=== PATIENT | male | born 1940 | race Caucasian/White ===

== ENCOUNTER 2017-02-01 10:25 | Outpatient (CLI) | payer MEDICARE, OTHER ==
--- NOTE | 2017-02-01 12:18 | XRAY Report ---
TWO-VIEW STANDING LEFT KNEE: 02/01/2017 CLINICAL INDICATION: Pain. FINDINGS: Frontal and lateral views of the left knee demonstrate no evidence of fracture or dislocat ion. The joint spaces are preserved. No effusion is present. IMPRESSION: NORMAL LEFT KNEE. JOB #: [id number] EXT JOB #:[id number]
== END 2017-02-01 10:26 | disposition home or self-care (01) ==
LOC: DI 10:25
PROVIDERS: ATTEND Internal Medicine
DX: M25.562 Pain in left knee (principal)

== ENCOUNTER 2017-12-11 14:49 | Outpatient (CLI) | payer MEDICARE, OTHER ==
--- NOTE | 2017-12-12 10:07 | Ultrasound Report ---
Procedure Date: 12/11/2017 Accession Number: [id number] / [id number] Procedure: US - Duplex Lwr Ext Arterial Bilat CPT Code: FULL RESULT: EXAM: BILATERAL LOWER EXTREMITY ARTERIAL DOPPLER ULTRASOUND EXAM DATE: 12/11/2017 04:35 PM. CLINICAL HISTORY: Claudication. Leg pain. COMPARISON: None. TECHNIQUE: Real-time sonographic vascular imaging was performed by the footwear sales associate, utilizing color-flow, Doppler flow, and spectral analysis. Multiple member service representative static images were saved for review. FINDINGS: Right Leg: [employer]: PSV 87 cm/sec. Biphasic waveform. PSFA: PSV 101 cm/sec.Biphasic waveform. MSFA: PSV 60 cm/sec.Biphasic waveform. DSFA: PSV 55 cm/sec.Biphasic waveform. PFA: PSV 69 cm/sec. Monophasic waveform. POP: PSV 37 cm/sec.Biphasic waveform. SHERYL: PSV 34 cm/sec.Biphasic waveform. QUALITY TESTER: PSV 24 cm/sec.Biphasic waveform. PER: PSV 18 cm/sec.Biphasic waveform. DPA: PSV 33 cm/sec.Biphasic waveform. Left Leg: [employer]: PSV 76 cm/sec. Triphasic waveform. PSFA: PSV 97 cm/sec.Biphasic waveform. MSFA: PSV 102 cm/sec.Biphasic waveform. DSFA: PSV 80 cm/sec.Biphasic waveform. PFA: PSV 78 cm/sec. Triphasic waveform. POP: PSV 80 cm/sec.Biphasic waveform. SHERYL: PSV 41 cm/sec.Biphasic waveform. QUALITY TESTER: PSV 75 cm/sec. Triphasic waveform. PER: PSV 87 cm/sec. Triphasic waveform. DPA: PSV 36 cm/sec. Monophasic waveform. IMPRESSION: No flow-limiting stenosis in either lower extremity arterial system. RADIA
== END 2017-12-11 14:50 | disposition home or self-care (01) ==
LOC: DI 14:49
PROVIDERS: ATTEND Internal Medicine
DX: R26.89 Other abnormalities of gait and mobility (principal)
CPT/HCPCS: 93925

== ENCOUNTER 2018-08-05 15:48 | Outpatient (CLI) | payer MEDICARE, OTHER ==
--- NOTE | 2018-08-05 16:20 | XRAY Report ---
Reason: COUGH Procedure Date: 08/05/2018 Accession Number: [id number] / [id number] Procedure: XR - Chest 2 View X-Ray CPT Code: 55070 FULL RESULT: EXAM: CHEST RADIOGRAPHY EXAM DATE: 08/05/2018 04:07 PM. CLINICAL HISTORY: COUGH. COMPARISON: 05/17/2012 5:46 AM. TECHNIQUE: 2 views. FINDINGS: Lungs/Pleura: Hypoventilatory chest. Mild bilateral basilar consolidation most consistent with pneumonia. No pleural effusions. No pneumothorax. Mediastinum: Heart and mediastinal contours are unremarkable. Other: None. IMPRESSION: 1. Hypoventilatory chest. 2. Mild bilateral basilar parenchymal consolidation most consistent with pneumonia. No pleural effusions. RADIA
== END 2018-08-05 15:49 | disposition home or self-care (01) ==
LOC: DI 15:48
PROVIDERS: ATTEND Internal Medicine
DX: J18.1 Lobar pneumonia, unspecified organism (principal)
CPT/HCPCS: 71046

== ENCOUNTER 2020-11-11 16:10 | Outpatient (CLI) | payer MEDICARE, OTHER ==
--- NOTE | 2020-11-11 16:45 | CT Report ---
PROCEDURE: HEAD WO INDICATIONS: SEVERE HEADACHE TECHNIQUE: Noncontrast 4.5 mm thick angled axial sections acquired from the foramen magnum to the vertex. For r adiation dose reduction, the following was used: automated exposure control, adjustment of mA and/or kV according to patient size. COMPARISON: None. FINDINGS: Image quality: Excellent. CSF spaces: Basal cisterns are patent. No extra-axial fluid collections. Ventricles are normal in size and shape. Brain: No midline shift. No intracranial masses or hemorrhage. Moran-white matter interface is norm al. Skull and face: Calvarium and visualized facial bones are intact, without suspicious lesions. Sinuses: Visualized sinuses and mastoids are clear. IMPRESSION: No acute intracranial abnormality. Reviewed by: Ana Zuñiga MD on 11/11/2020 4:44 PM PDT Approved by: Ana Zuñiga MD on 11/11/2020 4:44 PM PDT Station ID: [id number]
== END 2020-11-11 16:11 | disposition home or self-care (01) ==
LOC: LAB 16:10 → DI 16:11
PROVIDERS: ATTEND Internal Medicine
DX: R51.9 Headache, unspecified (principal)
CPT/HCPCS: 36415; 85651; 86140

== ENCOUNTER 2021-06-12 08:00 | Outpatient (CLI) | payer MEDICARE, OTHER ==
[2021-06-12 16:17] LABS: ALBUMIN 3.9 g/dL (3.2-5.5); ALBUMIN/GLOBULIN RATIO 1.3 (1.0-2.2); BILIRUBIN,TOTAL 0.6 mg/dL (0.2-1.0); CALCIUM 9.2 mg/dL (8.5-10.3); POTASSIUM 4.2 mmol/L (3.5-5.0)
[2021-06-13 09:00] LABS: ESTIMATED AVERAGE GLUCOSE 157 mg/dL (70-100); HEMOGLOBIN A1c% 7.1 % (4.27-6.07)
== END 2021-06-12 23:59 | disposition home or self-care (01) ==
LOC: LAB 08:00
PROVIDERS: ATTEND Internal Medicine
DX: Z79.899 Other long term (current) drug therapy (principal)
CPT/HCPCS: 36415; 80053; 82607; 83036

== ENCOUNTER 2021-07-05 11:52 | Outpatient (CLI) | payer MEDICARE, OTHER ==
--- NOTE | 2021-07-05 13:29 | CT Report ---
PROCEDURE: Sinuses INDICATIONS: CHRONIC PANSINUSITIS TECHNIQUE: Noncontrast 3.0 mm axial images acquired from the frontal sinuses to the mid-sella, with coronal and sagittal reformats. For radiation dose reduction, the following was used: automated exposure control , adjustment of mA and/or kV according to patient size. COMPARISON: Correlation is made with the prior head CT, 11/11/2020 FINDINGS: Image quality: Excellent. Maxillary Sinuses: No bony remodeling or destruction. Mild mucosal thickening is seen within the inf erior maxillary sinuses. Ethmoid Air Cells: No bony remodeling or destruction. Sinuses are clear. Sphenoid Sinuses: No bony remodeling or destruction. Sinuses are clear. Frontal Sinuses: No bony remodeling or destruction. Sinuses are clear. Ostiomeatal Complexes: Ostiomeatal complexes are patent, yet they are constitutionally narrowed. The re are further narrowed by soft tissue thickening. There are bilateral Andres cells. Miscellaneous: Visualized intra-orbital contents are normal. No gene bullosa. There is minimal ri ghtward nasal septal deviation. IMPRESSION: Focal mild maxillary sinus disease. Narrowed ostiomeatal complexes. Reviewed by: Gilbert Villanueva MD on 07/05/2021 12:28 PM OLGA Approved by: Gilbert Villanueva MD on 07/05/2021 12:28 PM AKNOHEMI Station ID: [id number]
== END 2021-07-05 11:53 | disposition home or self-care (01) ==
LOC: DI 11:52
PROVIDERS: ATTEND Otolaryngology
DX: J34.89 Other specified disorders of nose and nasal sinuses (principal); J31.0 Chronic rhinitis; R05.9 Cough, unspecified; J32.4 Chronic pansinusitis

== ENCOUNTER 2022-04-23 08:45 | Emergency (ER) | payer MEDICARE, OTHER ==
[2022-04-23] MEDS ORDERED: AMPICILLIN/SULBACTAM 3 GM in SODIUM CHLORIDE 0.9% MINIBAG 100 ML IV STA (08:57)
[2022-04-23] MEDS ORDERED: TETANUS/DIPHTHERIA/PERTUSSIS 0.5 ML SYRINGE IM ONE (08:58)
--- NOTE | 2022-04-23 09:02 | ED Physician Documentation ---
PD HPI UPPER EXT INJURY - Stated complaint Stated Complaint: DOG BITE - Chief complaint Chief Complaint: Laceration - History obtained from History obtained from: Patient - Additonal information Additional information: 81-year-old gentleman with type 2 diabetes and hypertension was moving his dog in the bed 4 nights ago and it bit him on the right hand. Since yesterday he has had progressive redness up the forearm without fevers or chills. He did not know his tetanus status, but review of the [facility] vaccine registry shows that he had it in 2014. Review of Systems Constitutional: denies: Fever, Chills PD PAST MEDICAL HISTORY - Past Medical History Cardiovascular: Hypertension, High cholesterol Respiratory: Sleep apnea Endocrine/Autoimmune: Type 2 diabetes GI: None : None HEENT: Chronic hearing loss Psych: Anxiety Musculoskeletal: None Derm: None - Past Surgical History General: Colonoscopy - Present Medications Home Medications: Ambulatory Orders Medication Instructions Recorded Confirmed Citalopram [CeleXA] 40 mg PO DAILY 06/09/13 03/09/15 Pravastatin Sodium [Pravachol] 80 mg PO DAILY 06/09/13 03/09/15 metFORMIN [Glucophage] 1,000 mg PO BID 06/09/13 03/09/15 LORazepam [Lorazepam] 0.5 mg PO Q24HR@2100 PRN 03/08/15 03/09/15 lisinopriL [Lisinopril] 5 mg PO DAILY 03/08/15 03/09/15 Amox/Clav 875/125 [Augmentin] 1 each PO Q12H #20 tablet 04/23/22 - Allergies Allergies/Adverse Reactions: Allergies Allergy/AdvReac Type Severity Reaction Status Date / Time ciprofloxacin [From Cipro] AdvReac Unknown Verified 04/23/22 08:58 PD ED PE NORMAL - Vitals Vital signs reviewed: Yes - General General: Alert and oriented X 3, No acute distress - Extremities Extremities: Other (Multiple puncture wounds near the thenar area and dorsal first webspace of the right hand, no bony tenderness or limited range of motion. On the palmar side I was able to express just a bit of purulent material that was sent for culture. He has cellulitis up the anterolateral forearm ) - Neuro Neuro: Alert and oriented X 3, Normal speech - Psych Psych: Normal mood, Normal affect Results - Vitals Vitals: Vital Signs - 24 hr 04/23/22 08:54 Temperature 36.8 C Heart Rate 57 L Respiratory 14 Rate Blood Pressure 156/62 H O2 Saturation 100 Oxygen O2 Source Room air PD Medical Decision Making - ED course ED course: 81-year-old gentleman with dog bite wound for 4 days duration to the right hand now with some cellulitis of the forearm. Tetanus is up-to-date. He was administered 3 g of IV Unasyn in the emergency department and counseled on wound care and expected healing and return precautions. Departure - Departure Disposition: 01 Home, Self Care Clinical Impression: Cellulitis of right arm Dog bite of right hand Qualifiers: Encounter type: initial encounter Qualified Code(s): S61.451A - Open bite of right hand, initial encounter; W54.0XXA - Bitten by dog, initial encounter Condition: Good Record reviewed to determine appropriate education?: Yes Instructions: ED Bite Dog, ED Infec Skin Cellulitis Prescriptions: Amox/Clav 875/125 [Augmentin] 1 each PO Q12H #20 tablet Comments: We are performing a wound culture, the results should be done in 48-72 hours. If antibiotic change is necessary we will call you. Return if worse in the meantime, especially if you develop increased pain, fevers, cannot keep down the medication. Otherwise follow-up with your physician in approximately 2 days for recheck
[2022-04-23 09:45] VITALS: BP 137/68
== END 2022-04-23 09:51 | disposition home or self-care (01) ==
LOC: ED 08:45
DX: S61.451A Open bite of right hand, initial encounter (principal); W54.0XXA Bitten by dog, initial encounter; L03.113 Cellulitis of right upper limb; I10 Essential (primary) hypertension; E11.9 Type 2 diabetes mellitus without complications; Z79.84 Long term (current) use of oral hypoglycemic drugs
CPT/HCPCS: 87070; 87205; 96365; 99283

== ENCOUNTER 2022-06-12 10:06 | Outpatient (CLI) | payer MEDICARE, OTHER ==
[2022-06-12 15:32] LABS: BASOPHILS # (AUTO) 0.1 10^3/uL (0.0-0.1); BASOPHILS % (AUTO) 0.7 %; EOSINOPHILS # (AUTO) 0.2 10^3/uL (0.0-0.7); EOSINOPHILS % (AUTO) 1.5 %; HCT - HEMATOCRIT 41.2 % (42.0-52.0); HGB - HEMOGLOBIN 13.2 g/dL (14.0-18.0); LYMPHOCYTES # (AUTO) 1.7 10^3/uL (1.5-3.5); LYMPHOCYTES % (AUTO) 16.4 %; MEAN CORPUSCULAR HEMOGLOBIN 28.4 pg (27.0-31.0); MEAN CORPUSCULAR VOLUME 88.8 fL (80.0-94.0); MONOCYTES # (AUTO) 1.1 10^3/uL (0.0-1.0); MONOCYTES % (AUTO) 10.6 %; NEUTROPHILS # (AUTO) 7.3 10^3/uL (1.5-6.6); NEUTROPHILS % (AUTO) 70.4 %; PLT - PLATELET COUNT 317 10^3/uL (130-450); RED BLOOD COUNT 4.64 10^6/uL (4.70-6.10); RED CELL DISTRIBUTION WIDTH 14.4 % (12.0-15.0); WHITE BLOOD COUNT 10.3 x10^3/uL (4.8-10.8)
[2022-06-12 15:51] LABS: MICROALBUM/CREATININE RATIO,UR 18.2 ug/mg (<30.0); MICROALBUMIN,URINE 2.5 mg/dL (0-300.0)
[2022-06-12 15:57] LABS: ALBUMIN/GLOBULIN RATIO 1.1 (1.0-2.2); ALKALINE PHOSPHATASE 48 IU/L (42-121); ALT ALANINE AMINOTRANSFERASE 14 IU/L (10-60); AST ASPARTATE AMINOTRANSFERASE 15 IU/L (10-42); BILIRUBIN,TOTAL 0.5 mg/dL (0.2-1.0); BUN - BLOOD UREA NITROGEN 24 mg/dL (6-20); CALCIUM 10.2 mg/dL (8.5-10.3); CARBON DIOXIDE - CO2 24 mmol/L (21-32); CHLORIDE 101 mmol/L (101-111); CHOL/HDL RATIO 2.7 (<5.0); CHOLESTEROL 189 mg/dL; CK- CREATINE KINASE 28 IU/L (22-269); CREATININE 1.1 mg/dL (0.6-1.2); GFR - MDRD 65 (>89); GLUCOSE 130 mg/dL (70-100); HDL CHOLESTEROL 70 mg/dL; LDL CHOLESTEROL,CALCULATED 99 mg/dL; LDL/HDL RATIO 1.4 (<3.6); POTASSIUM 4.8 mmol/L (3.5-5.0); SODIUM 137 mmol/L (135-145); THYROID STIMULATING HORMONE 2.41 uIU/mL (0.34-5.60); TOTAL PROTEIN 7.6 g/dL (6.7-8.2); TRIGLYCERIDES 101 mg/dL; VLDL CHOLESTEROL 20 mg/dL
[2022-06-12 21:05] LABS: ESTIMATED AVERAGE GLUCOSE 171 mg/dL (70-100); HEMOGLOBIN A1c% 7.6 % (4.27-6.07)
== END 2022-06-12 23:59 | disposition home or self-care (01) ==
LOC: LAB.R 10:06
PROVIDERS: ATTEND Internal Medicine
DX: Z00.00 Encounter for general adult medical examination without abnormal findings (principal); C44.91 Basal cell carcinoma of skin, unspecified; C61 Malignant neoplasm of prostate; F32.A Depression, unspecified; E11.9 Type 2 diabetes mellitus without complications; K57.90 Diverticulosis of intestine, part unspecified, without perforation or abscess without bleeding; H91.90 Unspecified hearing loss, unspecified ear; E78.5 Hyperlipidemia, unspecified; M19.90 Unspecified osteoarthritis, unspecified site; J30.2 Other seasonal allergic rhinitis; Z79.899 Other long term (current) drug therapy; Z86.010 Personal history of colon polyps
CPT/HCPCS: 80053; 80061; 82043; 82550; 82570; 82607; 83036; 83721; 84443; 85025

== ENCOUNTER 2025-02-05 13:59 | Inpatient (IN) ==
[2025-02-05] MEDS: HYDROmorphone 0.5 MG/0.5 ML SYRINGE IVP STA (14:58)
[2025-02-05] MEDS: KETOROLAC 30 MG/ML VIAL IVP STA (14:58)
--- NOTE | 2025-02-05 15:03 | ED Physician Documentation ---
History of Present Illness Stated complaint Stated Complaint: R HIP PX Chief complaint Chief Complaint: Trauma Ext History obtained from History obtained from: Patient and EMS Additonal information Additional information: Patient comes to the emergency department chief complaint of ground-level fall. He tripped and fell onto his right hip in the parking lot at the store and had immediate right hip pain. No other injuries whatsoever. He did not hit his head. Not on anticoagulation. Meds/Allgy Home Medications Ambulatory Orders Medication Instructions Recorded Confirmed citalopram 10 mg tablet 40 mg PO DAILY 06/09/1302/20 metformin 850 mg tablet 1,000 mg PO BID 06/09/13 pravastatin 80 mg tablet 80 mg PO DAILY 06/09/1302/20 (Pravachol) lisinopril 5 mg tablet 5 mg PO DAILY 03/08/1503/09 lorazepam 0.5 mg tablet 0.5 mg PO Q24HR@2100 PRN Anx iety 03/08/15 03/09/15 Augmentin 875 mg-potassium 1 ea PO Q12H #20 tabs 04/23 clavulanate 125 mg tablet Allergies Allergies Allergy/AdvReac Type Severity Reaction Status Date / Time ciprofloxacin (From Cipro) AdvReac Unknown Verified 04/23/22 08:58 PFSH Active Problems All Active Problems (Updated 02/05/25 @ 19:10 by Nivia Vicente MD) Femoral neck fracture (Acute) Social History Social History If you are a former smoker, when did you quit? (Date/Year): 1999 How many cigarettes a day do you smoke? (20 cigarettes=1 Pk): 20 Do you dip or chew tobacco?: No Do you feel safe in your home environment?: Yes History of physical, verbal, emotional, or financial abuse?: No Exam Exam Vital Signs: Vital Signs x48h Temp Pulse Resp BP Pulse Ox 02/05/25 17:00 89 16 142/56 H 97 02/05/25 15:03 87 16 166/85 H 96 02/05/25 14:11 85 16 172/89 H 98 02/05/25 14:06 36.7 C 89 18 172/89 H 96 Constitutional normal general appearance and no apparent distress HENMT normocephalic, head/scalp atraumatic, external nose normal and oral mucous membranes normal Eyes EOMs intact bilaterally Neck/C-Spine visual inspection normal and supple Respiratory breath sounds equal bilaterally, normal respiratory effort and clear to auscultation bilaterally Cardiovascular normal heart rate noted, regular rhythm noted and no edema Gastrointestinal abdomen normal to inspection, abdomen soft to palpation, nontender to palpation and nondistended Genitourinary no CVA tenderness Extremities normal to inspection Neurology Alert, grossly intact Psychiatry mental status grossly normal Skin skin color normal Results Vitals Vitals: Vital Signs - 24 hr 02/05/25 14:06 02/05/25 14:11 02/05/25 14:58 Temperature 36.7 C Temperature Source Temporal Artery Scan Pulse Rate 89 85 Respiratory Rate 18 16 Blood Pressure 172/89 H 172/89 H O2 Saturation 96 98 O2 Source Room air Room air Pain Intensity 10 3 6 02/05/25 14:58 02/05/25 15:03 02/05/25 17:00 Temperature Temperature Source Pulse Rate 87 89 Respiratory Rate 16 16 Blood Pressure 166/85 H 142/56 H O2 Saturation 96 97 O2 Source Room air Room air Pain Intensity 6 5 2 02/05/25 18:48 Temperature Temperature Source Pulse Rate Respiratory Rate Blood Pressure O2 Saturation O2 Source Pain Intensity 4 Oxygen O2 Source Room air Labs Labs: Laboratory Tests 02/05/25 17:54 WBC 12.1 H RBC 3.91 L Hgb 10.9 L Hct 34.9 L MCV 89.3 MCH 27.9 MCHC 31.2 L RDW 15.7 H Plt Count 277 MPV 8.6 Neut # (Auto) 9.5 H Lymph # (Auto) 1.3 L [place] # (Auto) 1.2 H Eos # (Auto) 0.2 Baso # (Auto) 0.0 Absolute Nucleated RBC 0.00 Nucleated RBC % 0.0 PT 11.8 INR 1.1 Sodium 138 Potassium 5.1 H Chloride 107 Carbon Dioxide 24 Anion Gap 7.0 BUN 30 H Creatinine 1.5 H Estimated GFR (MDRD) 45 L Glucose 183 H Calcium 9.4 Total Bilirubin 0.3 AST 11 ALT 11 Alkaline Phosphatase 50 Total Protein 5.8 L Albumin 3.9 Globulin 1.9 L Albumin/Globulin Ratio 2.1 Lipase 35 PD Medical Decision Making ED course Complexity details: reviewed old records, re-evaluated patient, considered differential, d/w patient, d/w family and d/w science consultant ED course: Patient was sent for a CT scan of the right hip and pelvis and found to have a femoral neck fracture. I spoke with orthopedics on-call Dr. Schwartz and he states he will take patient to the OR in the morning. He has requested medicine admission. I spoke with hospitalist team Dr. Ruiz and GREGORY Abad and they have agreed to admit the patient when a bed becomes available which hopefully will be later this evening. The patient has been treated with as needed Dilaudid in the emergency department. He has had good pain control with this. I have discussed the plan with the patient and his , and they are in agreement. Discharge Plan Discharge Patient Disposition: [facility] DC/Xfer Condition: Stable Clinical Impression: Femoral neck fracture Qualifiers: Encounter type: initial encounter Fracture type: closed Laterality: right Qualified Code(s): S72.001A - Fracture of unspecified part of neck of right femur, initial encounter for closed fracture Prescriptions: No Action citalopram 10 MG tablet 40 mg PO DAILY metformin 850 MG tablet 1,000 mg PO BID pravastatin [Pravachol] 80 MG tablet 80 mg PO DAILY lorazepam 0.5 MG tablet 0.5 mg PO Q24HR@2100 PRN (Reason: Anxiety) lisinopril 5 MG tablet 5 mg PO DAILY amoxicillin-pot clavulanate 1 TAB tablet 1 ea PO Q12H Qty: 20 0RF Print Language: Guamanian
--- NOTE | 2025-02-05 17:35 | CT Report ---
PROCEDURE: CT Lower Extremity RT WO INDICATIONS: fall/pain TECHNIQUE: CT scan of the hip was performed without contrast. Coronal and sagittal reformats were constructed. For radiation dose reduction, the following was used: automated exposure control, adjustment of mA and/or kV according to patient size. COMPARISON: None. FINDINGS: Image quality: Excellent. Bones: There is an angulated and impacted femoral neck fracture. No dislocation at the hip joint. Remaining osseous structures are intact. No suspicious osseous lesions. Soft tissues: Colonic diverticula without inflammatory change. Mild soft tissue contusion adjacent to the femoral fracture. Impression: Angulated and impacted femoral neck fracture. Diverticulosis. Reviewed by: Francie Nielson MD on 02/05/2025 5:31 PM PDT Approved by: Francie Nielson MD on 02/05/2025 5:31 PM PDT Station ID: [id number]
[2025-02-05 18:06] LABS: HCT - HEMATOCRIT 34.9 % (42.0-52.0); HGB - HEMOGLOBIN 10.9 g/dL (14.0-18.0); MEAN PLATELET VOLUME 8.6 fL (7.4-11.4); NRBC ABSOLUTE COUNT (AUTO) 0.00 x10^3/uL; NUCLEATED RED BLOOD CELLS AUTO 0.0 /100WBC; PLT - PLATELET COUNT 277 10^3/uL (130-450); RED CELL DISTRIBUTION WIDTH 15.7 % (12.0-15.0)
[2025-02-05 18:11] LABS: INR 1.1 (0.8-1.2); PT - PROTHROMBIN TIME 11.8 secs (9.9-12.6)
[2025-02-05 18:28] LABS: ALT ALANINE AMINOTRANSFERASE 11.0 IU/L (10-60); AST ASPARTATE AMINOTRANSFERASE 11.0 IU/L (10-42); BUN - BLOOD UREA NITROGEN 30.0 mg/dL (6-20); CARBON DIOXIDE - CO2 24.0 mmol/L (21-32); CREATININE 1.5 mg/dL (0.6-1.3); GFR - MDRD 45.0 (>89)
[2025-02-05] MEDS: HYDROmorphone 1 MG/ML CARPUJECT IVP PRN (18:48)
[2025-02-05] MEDS ORDERED: ONDANSETRON 4 MG/2 ML VIAL IVP PRN (20:51)
--- NOTE | 2025-02-05 21:07 | HISTORY & PHYSICAL EXAMINATION ---
Chief Complaint Chief Complaint Chief Complaint: right hip pain History of Present Illness Admitted From Admitted From:: home History Obtained From Records Reviewed: echo Apr 2024, History obtained from: patient History of Present Illness HPI Comment/Other: 84 yo male LANDEN after a fall. He bumped into his while walking though a parking lot after having lunch at a restaurant in [place]. has been feeling well recently. no problems. had immediate pain in the right hip with inability to bear weight. unable to get up. Denies syncope/presyncope. Did not hit his head. he is not on blood thinners. Very pleasant in conversation. When I ask about his health history and medications, he wants me to "check the computer". Active and healthy 84 yo. lives with his , no children. DNR status. would make his medical decisions if he were not able. Meds/Allgy Home Medications Ambulatory Orders Medication Instructions Recorded Confirmed lisinopril 5 mg tablet 5 mg PO DAILY 03/08/1502/05 lorazepam 0.5 mg tablet 0.5 mg PO Q24HR@2100 PRN Anx iety 03/08/15 02/05/25 bupropion HCl 150 mg 24 hr tablet, 150 mg PO DAILY 02/05/25 extended release losartan 25 mg tablet 25 mg PO DAILY 02/05/2501/20 pioglitazone 15 mg tablet 15 mg PO DAILY 02/05/2501/20 pravastatin 40 mg tablet 40 mg PO QPM 02/05/25 triamcinolone acetonide 0.1 % 1 applic topical BID PRN rash 02/05/25 02/05/25 topical ointment Allergies Allergies Allergy/AdvReac Type Severity Reaction Status Date / Time ciprofloxacin (From Cipro) AdvReac Unknown Verified 04/23/22 08:58 PFSH Active Problems All Active Problems (Updated 02/05/25 @ 21:33 by GREGORY Burton) Leukocytosis (Acute) Renal insufficiency (Acute) Hyperkalemia (Acute) Depression (Chronic) Hyperlipidemia (Chronic) Hypertension (Chronic) Diabetes (Chronic) Femoral neck fracture (Acute) Social History Social History If you are a former smoker, when did you quit? (Date/Year): 1999 How many cigarettes a day do you smoke? (20 cigarettes=1 Pk): 20 Do you dip or chew tobacco?: No Do you feel safe in your home environment?: Yes History of physical, verbal, emotional, or financial abuse?: No POLST Patient has POLST: No POLST on file?: No Review of Systems Status of ROS: 10 or more systems reviewed and unremarkable except as noted in history and below Prior Level of Functionality: Drives, walks without assistive devices, denies falls or balance problems. Gardens and walks. Exam Exam Vital Signs: Vital Signs x48h Temp Pulse Resp BP Pulse Ox 02/05/25 20:37 100 18 166/102 H 96 02/05/25 19:41 84 16 125/87 97 02/05/25 17:00 89 16 142/56 H 97 02/05/25 15:03 87 16 166/85 H 96 02/05/25 14:11 85 16 172/89 H 98 02/05/25 14:06 36.7 C 89 18 172/89 H 96 Constitutional normal general appearance and no apparent distress HENMT normocephalic and head/scalp atraumatic Eyes conjunctivae normal Neck/C-Spine visual inspection normal and trachea midline Lymph no lymphadenopathy noted Chest inspection of chest normal Respiratory breath sounds equal bilaterally, normal respiratory effort and clear to auscultation bilaterally Cardiovascular normal heart rate noted and regular rhythm noted Gastrointestinal abdomen normal to inspection and abdomen soft to palpation Back/Pelvis spine normal to inspection Extremities right lower extremity shortened and externally rotated. unable to perform ROM RLE. no pedal edema. Neurology no movement abnormality noted, speech normal and GCS 15 Psychiatry mental status grossly normal, oriented x3, thought process normal and cooperative Skin skin color normal abrasion, small at right anterior patella area, no joint effusion or deformity Conclusion/Plan Problem List (1) Femoral neck fracture: Plan: ground-level fall resulting in right femoral neck fracture with obvious deformity. Emergency department MD has discussed with orthopedics who is planning on operative repair in the morning. This patient is not on any blood thinners he does not take aspirin. Discussed this patient with Dr. Vicente in the emergency department decision was made to admit him to inpatient status for operative treatment of his hip fracture. He will get physical therapy postoperatively and will either discharged home in the care of his or need rehab bed placement. N.p.o. after midnight. Will optimize for the OR. EKG ordered. Additionally will attempt to correct his hyperkalemia overnight. Qualifiers: Encounter type: initial encounter Fracture type: closed [facility] Qualified Code(s): S72.001A - Fracture of unspecified part of neck of right femur, initial encounter for closed fracture (2) Hyperkalemia: Plan: Laboratory Tests 02/05/25 17:54 Potassium 5.1 H Limited access to his health information. But I do not see any past history of hyperkalemia I do not see any potassium supplements in his medication list nor potassium sparing diuretics. I have ordered 1 dose of Lokelma to be given this evening and we will recheck his potassium level again in the morning. (3) Leukocytosis: Plan: 12.5 on admit, could be secondary to stress. no cough or fever recently. no dysuria. I will check UA, and repeat CBC in AM (4) Renal insufficiency: Plan: Laboratory Tests 06/12/22 02/05/25 10:06 17:54 Creatinine 1.1 1.5 H Most recent labs 2-1/2 years ago showing a normal creatinine. Unclear if this is acute or chronic Creatinine mildly elevated this evening with a GFR of 45. I will hydrate the patient overnight and recheck his creatinine again in the morning. I wonder if this is chronic renal insufficiency related to his diabetes. (5) Diabetes: Plan: I can see surgical consultations back as far as 2014 mentioning his history of diabetes. Home medication list includes pioglitazone. His glucose is slightly elevated on labs done this evening at 183. I have placed the patient on low- dose sliding scale insulin overnight and we will check an A1c with his a.m. labs. Goal would be to keep his blood sugars less than 180 while hospitalized (6) Hypertension: Plan: for optimal healing of his hip fracture. Home medications include losartan 25 mg daily lisinopril 5 mg daily. I find it odd that his medications and been reconciled in this patient lists both an STACEY inhibitor but and an angiotensin receptor marti. Will ask for more thorough medication reconciliation in the AM. Patient is not aware of his medication list.If he is indeed taking these 2 medications together it could be the cause of his hyperkalemia (7) Hyperlipidemia: Plan: Will continue his pravastatin 40 mg daily postoperatively. (8) Depression: Plan: Home medication list includes lorazepam 0.5 mg nightly. Checked PDMP and he is indeed prescribed this medication. Also lists bupropion 150 mg daily. We will continue this medication. Plan I have spent 80 minutes in the care of this patient today. This includes time [id number], review and ordering of diagnostic imaging and laboratory studies and consultation with other providers. Monitoring the patient's signs symptoms, evaluation of medication effectiveness and patient's response to treatment. Lab Results Lab results reviewed: Yes 02/05/25 17:54 02/05/25 17:54 Diagnostic Imaging Results Diagnostic Imaging Results: positive Final report reviewed and Read independently Diagnostic Imaging Results Comments: CT right lower extremity shows a right femoral neck fracture. Core Measures Anticipated LOS I expect patient to be DC'd or transferred within 96 hours.: Yes DVT/VTE - Prophylaxis VTE/DVT Device ordered at admit?: Yes VTE/DVT Prophylaxis med ordered at admit?: No Not Ordered - Medical Reason: Not indicated (Held for OR)
--- OUTSIDE RECORDS SUMMARY | 2025-02-05 21:09 | EXTERNAL MEDICAL SUMMARY RPT | Continuity of Care Document ---
Author Organization [place] Address [address] [address] Phone Problems date description facility 2025-02-05 20:56 Fracture of unspecif ied part of neck of unspecified femur, initial encounter for closed fracture [facility] Results/Labs test date facility value unit notes Result panel 1 NUCLEATED RED BLOOD CELLS AUTO 2025-02-05 17:54 [facility] 0.0 /100wbc (missing) BASOPHILS # (AUTO) 2025-02-05 17:54 [facility] 0.0 10 3/ul (missing) NRBC ABSOLUTE COUNT (AUTO) 2025-02-05 17:54 [facility] 0.00 x10 3/ul (missing) EOSINOPHILS # (AUTO) 2025-02-05 17:54 [facility] 0.2 10 3/ul (missing) BILIRUBIN,TOTAL 2025-02-05 17:54 [facility] 0.3 mg/dl As of October 2022 testing method has changed, this may include reference ranges. INR 2025-02-05 17:54 [facility] 1.1 (missing) Oral Anticoagulant Indication INR range Venous Thrombosis, P.E. 2.0 - 3.0 Mechanical Valve 2.5 - 3.5 MONOCYTES # (AUTO) 2025-02-05 17:54 [facility] 1.2 10 3/ul (missing) LYMPHOCYTES # (AUTO) 2025-02-05 17:54 [facility] 1.3 10 3/ul (missing) CREATININE 2025-02-05 17:54 [facility] 1.5 mg/dl As of October 2022 testing method has changed, this may include reference ranges. GLOBULIN 2025-02-05 17:54 [facility] 1.9 g/dl (missing) HGB - HEMOGLOBIN 2025-02-05 17:54 [facility] 10.9 g/dl (missing) CHLORIDE 2025-02-05 17:54 [facility] 107 mmol/l As of October 2022 testing method has changed, this may include reference ranges. AST ASPARTATE AMINOTRANSFERASE 2025-02-05 17:54 [facility] 11 iu/l As of October 2022 testing method has changed, this may include reference ranges. ALT ALANINE AMINOTRANSFERASE 2025-02-05 17:54 [facility] 11 iu/l As of October 2022 testing method has changed, this may include reference ranges. PT - PROTHROMBIN TIME 2025-02-05 17:54 [facility] 11.8 secs N WHITE BLOOD COUNT 2025-02-05 17:54 [facility] 12.1 x10 3/ul (missing) SODIUM 2025-02-05 17:54 [facility] 138 mmol/l (missing) RED CELL DISTRIBUTION WIDTH 2025-02-05 17:54 [facility] 15.7 % (missing) GLUCOSE 2025-02-05 17:54 [facility] 183 mg/dl As of October 2022 testing method has changed, this may include reference ranges. ALBUMIN/GLOBULIN RATIO 2025-02-05 17:54 [facility] 2.1 (missing) (missing) CARBON DIOXIDE - CO2 2025-02-05 17:54 [facility] 24 mmol/l As of October 2022 testing method has changed, this may include reference ranges. MEAN CORPUSCULAR HEMOGLOBIN 2025-02-05 17:54 [facility] 27.9 pg (missing) PLT - PLATELET COUNT 2025-02-05 17:54 [facility] 277 10 3/ul (missing) ALBUMIN 2025-02-05 17:54 [facility] 3.9 g/dl As of October 2022 testing method has changed, this may include reference ranges. RED BLOOD COUNT 2025-02-05 17:54 [facility] 3.91 10 6/ul (missing) BUN - BLOOD UREA NITROGEN 2025-02-05 17:54 [facility] 30 mg/dl As of October 2022 testing method has changed, this may include reference ranges. MEAN CORPUSCULAR HGB CONC 2025-02-05 17:54 [facility] 31.2 g/dl (missing) HCT - HEMATOCRIT 2025-02-05 17:54 [facility] 34.9 % (missing) LIPASE 2025-02-05 17:54 [facility] 35 u/l As of October 2022 testing method has changed, this may include reference ranges. GFR - MDRD 2025-02-05 17:54 [facility] 45 (missing) The IDMS-traceable MDRD Study Equation has been validated extensively in and populations between the ages of 18 and 70 with impaired kidney function (eGFR < 60 mL/min/1.73m2) and has shown good performance for patients with all common causes of kidney disease. Although this equation has not been validated for patients older than 70, an MDRD-derived eGFR may still be a useful tool for providers caring for patients older than 70. References: http://www.nkdep.ni h.gov/lab-evaluatio n/gfr/creatinine-st and ardization, last updated June 2011. POTASSIUM 2025-02-05 17:54 [facility] 5.1 mmol/l As of October 2022 testing method has changed, this may include reference ranges. TOTAL PROTEIN 2025-02-05 17:54 [facility] 5.8 g/dl As of October 2022 testing method has changed, this may include reference ranges. ALKALINE PHOSPHATASE 2025-02-05 17:54 [facility] 50 iu/l As of October 2022 testing method has changed, this may include reference ranges. ANION GAP 2025-02-05 17:54 [facility] 7.0 (missing) (missing) MEAN PLATELET VOLUME 2025-02-05 17:54 [facility] 8.6 fl (missing) MEAN CORPUSCULAR VOLUME 2025-02-05 17:54 [facility] 89.3 fl (missing) CALCIUM 2025-02-05 17:54 [facility] 9.4 mg/dl As of October 2022 testing method has changed, this may include reference ranges. NEUTROPHILS # (AUTO) 2025-02-05 17:54 [facility] 9.5 10 3/ul (missing) Social History date description facility
[2025-02-05] MEDS: HYDROmorphone 0.5 MG/0.5 ML SYRINGE IVP PRN (21:30)
[2025-02-05] MEDS: SODIUM ZIRCONIUM CYCLOSILICATE 5 GM PACKET PO ONE (22:30)
[2025-02-05] MEDS: SODIUM CHLORIDE 0.9% 1,000 ML IV SCH (22:30)
[2025-02-05] MEDS: MELATONIN 3 MG TABLET PO SCH (22:30)
[2025-02-06] MEDS: INSULIN REGULAR, HUMAN 300 UNIT/3 ML PEN SUBQ SCH (00:43)
[2025-02-06] MEDS: SODIUM CHLORIDE FLUSH 0.9% 10 ML SYRINGE IVP SCH (00:47)
[2025-02-06 01:02] LABS: GLUCOSE, URINE (UA) NEGATIVE (NEGATIVE); KETONES,URINE (UA) NEGATIVE (NEGATIVE); OCCULT BLOOD,URINE NEGATIVE (NEGATIVE); SQUAMOUS EPITHELIAL CELL,UR NONE SEEN (<= Few)
[2025-02-06] MEDS: SODIUM CHLORIDE FLUSH 0.9% 10 ML SYRINGE IVP PRN (04:12)
[2025-02-06 06:03] LABS: HCT - HEMATOCRIT 35.5 % (42.0-52.0); HGB - HEMOGLOBIN 11.0 g/dL (14.0-18.0); MEAN PLATELET VOLUME 8.9 fL (7.4-11.4); NRBC ABSOLUTE COUNT (AUTO) 0.00 x10^3/uL; NUCLEATED RED BLOOD CELLS AUTO 0.0 /100WBC; PLT - PLATELET COUNT 266 10^3/uL (130-450); RED CELL DISTRIBUTION WIDTH 15.7 % (12.0-15.0)
[2025-02-06 06:22] LABS: BUN - BLOOD UREA NITROGEN 27.0 mg/dL (6-20); CARBON DIOXIDE - CO2 24.0 mmol/L (21-32); CREATININE 1.2 mg/dL (0.6-1.3); GFR - MDRD 58.0 (>89)
[2025-02-06 10:51] LABS: ESTIMATED AVERAGE GLUCOSE 154 mg/dL (70-100); HEMOGLOBIN A1c% 7.0 % (4.27-6.07)
--- NOTE | 2025-02-06 12:16 | PROVIDER PROGRESS NOTE ---
Subjective Prog Note Date Prog Note Date: 02/06/25 Subjective Subjective: Sitting up in bed and visiting with his . has been seen by Dr Schwartz this AM, and planning hemiarthroplasy tomorrow AM. Spirits are good. I had a long talk with patient and his today about code status. Explained POLST. he wants to think about it. Current Medications Current Medications Current Medications: Current Medications Generic Name Dose Route Start Last Admin Trade Name Freq PRN Reason Stop Dose Admin Acetaminophen 650 mg 02/05/25 20:51 Acetaminophen 325 Mg Tablet PO Q4HR PRN Pain 1 to 4, or Fever Bupropion HCl 150 mg 02/06/25 09:00 02/06/25 09:18 Bupropion Xl 150 Mg Tablet PO 150 mg DAILY NALLELY Administration Hydromorphone HCl 1 mg 02/05/25 18:20 02/06/25 09:28 Hydromorphone 1 Mg/Ml Carpuject IVP 1 mg Q2H PRN Administration Analgesia Hydromorphone HCl 0.5 mg 02/05/25 20:51 02/06/25 11:41 Hydromorphone 0.5 Mg/0.5 Ml Syringe IVP 0.5 mg Q2H PRN Administration Pain 8 to 10 Sodium Chloride 1,000 mls @ 100 mls/hr 02/05/25 21:00 02/06/25 08:02 Normal Saline 0.9% IV 100 mls/hr .Q10H NALLELY Administration Insulin Human Regular 1 - 5 unit 02/06/25 00:00 02/06/25 11:37 Insulin Regular, Human 300 Unit/3 Ml Pen SUBQ Not Given Q6HR NALLELY Protocol Lisinopril 5 mg 02/06/25 09:00 02/06/25 09:18 Lisinopril 5 Mg Tablet PO 5 mg DAILY NALLELY Administration Lorazepam 0.5 mg 02/06/25 17:00 Lorazepam 0.5 Mg Tablet PO QDDINNER NALLELY Melatonin 3 mg 02/05/25 21:48 02/05/25 22:30 Melatonin 3 Mg Tablet PO 3 mg QPM NALLELY Administration Ondansetron HCl 4 mg 02/05/25 20:51 Ondansetron 4 Mg/2 Ml Vial IVP Q6HR PRN Nausea / Vomiting Polyethylene Glycol 17 gm 02/06/25 09:00 02/06/25 09:08 Polyethylene Glycol 3350 17 Gm Packet PO Not Given DAILY NALLELY Sodium Chloride 10 ml 02/05/25 20:51 02/06/25 04:12 Sodium Chloride Flush 0.9% 10 Ml Syringe IVP 10 ml PRN PRN Administration NEEDED PER PROVIDER ORDERS Sodium Chloride 10 ml 02/06/25 01:00 02/06/25 09:08 Sodium Chloride Flush 0.9% 10 Ml Syringe IVP 10 ml 0100,0900,1700 NALLELY Administration Objective Vital Signs/Intake & Output Reviewed Vital Signs: Yes Vital Signs: Vital Signs x48h Temp Pulse Resp BP Pulse Ox 02/06/25 10:40 37.2 C 92 16 133/66 H 95 Intake & Output: Intake & Output 02/03/25 02/04/25 02/05/25 02/06/25 23:59 23:59 23:59 23:59 Intake Total 953 / 953 Output Total 150 / 150 895 / 895 Balance -150 / -150 58 / 58 Weight (kg) 65 kg Objective General Appearance: positive No acute distress and Alert Eyes Bilateral: positive Normal inspection ENT: positive ENT inspection nml Neck: positive Nml inspection Respiratory: positive Chest non-tender and Breath sounds nml Cardiovascular: positive Regular rate & rhythm and No murmur Abdomen: positive No distention Back: positive Nml inspection Skin: positive Color nml Extremities: positive Non-tender Neurologic/Psychiatric: positive Oriented x3 Lab Results 02/06/25 05:31 02/06/25 05:31 Other Labs: Lab Results x24hrs 02/06/25 02/06/25 02/06/25 Range/Units 11:33 06:06 05:31 WBC 11.7 H (4.8-10.8) x10^3/uL RBC 3.95 L (4.70-6.10) 10^6/uL Hgb 11.0 L (14.0-18.0) g/dL Hct 35.5 L (42.0-52.0) % MCV 89.9 (80.0-94.0) fL MCH 27.8 (27.0-31.0) pg MCHC 31.0 L (32.0-36.0) g/dL RDW 15.7 H (12.0-15.0) % Plt Count 266 (130-450) 10^3/uL MPV 8.9 (7.4-11.4) fL Neut # (Auto) 8.6 H (1.5-6.6) 10^3/uL Lymph # (Auto) 1.4 L (1.5-3.5) 10^3/uL [place] # (Auto) 1.4 H (0.0-1.0) 10^3/uL Eos # (Auto) 0.2 (0.0-0.7) 10^3/uL Baso # (Auto) 0.1 (0.0-0.1) 10^3/uL Absolute Nucleated RBC 0.00 x10^3/uL Nucleated RBC % 0.0 /100WBC PT (9.9-12.6) secs INR (0.8-1.2) Sodium 137 (135-145) mmol/L Potassium 4.6 H (3.5-4.5) mmol/L Chloride 107 (101-111) mmol/L Carbon Dioxide 24 (21-32) mmol/L Anion Gap 6.0 (6-13) BUN 27 H (6-20) mg/dL Creatinine 1.2 (0.6-1.3) mg/dL Estimated GFR (MDRD) 58 L (>89) Glucose 137 H (74-104) mg/dL POC Whole Bld Glucose 120 129 (70-100) mg/dL Calcium 8.9 (8.5-10.3) mg/dL Total Bilirubin (0.2-1.0) mg/dL AST (10-42) IU/L ALT (10-60) IU/L Alkaline Phosphatase (42-121) IU/L Total Protein (6.4-8.9) g/dL Albumin (3.2-5.5) g/dL Globulin (2.1-4.2) g/dL Albumin/Globulin Ratio (1.0-2.2) Lipase (11-82) U/L Urine Color Urine Clarity (CLEAR) Urine pH (5.0-7.5) PH Ur Specific [place] (1.002-1.030) Urine Protein (NEGATIVE) mg/dL Urine Glucose (UA) (NEGATIVE) mg/dL Urine Ketones (NEGATIVE) mg/dL Urine Occult Blood (NEGATIVE) Urine Nitrite (NEGATIVE) Urine Bilirubin (NEGATIVE) Urine Urobilinogen (NORMAL) E.U./dL Ur Leukocyte Esterase (NEGATIVE) Urine RBC (0-5) /HPF Urine WBC (0-3) /HPF Ur Squamous Epith Cells (<= Few) Urine Bacteria (None Seen) /HPF Urine Culture Comments 02/06/25 02/06/25 02/05/25 Range/Units 00:10 00:02 22:58 WBC (4.8-10.8) x10^3/uL RBC (4.70-6.10) 10^6/uL Hgb (14.0-18.0) g/dL Hct (42.0-52.0) % MCV (80.0-94.0) fL MCH (27.0-31.0) pg MCHC (32.0-36.0) g/dL RDW (12.0-15.0) % Plt Count (130-450) 10^3/uL MPV (7.4-11.4) fL Neut # (Auto) (1.5-6.6) 10^3/uL Lymph # (Auto) (1.5-3.5) 10^3/uL [place] # (Auto) (0.0-1.0) 10^3/uL Eos # (Auto) (0.0-0.7) 10^3/uL Baso # (Auto) (0.0-0.1) 10^3/uL Absolute Nucleated RBC x10^3/uL Nucleated RBC % /100WBC PT (9.9-12.6) secs INR (0.8-1.2) Sodium (135-145) mmol/L Potassium (3.5-4.5) mmol/L Chloride (101-111) mmol/L Carbon Dioxide (21-32) mmol/L Anion Gap (6-13) BUN (6-20) mg/dL Creatinine (0.6-1.3) mg/dL Estimated GFR (MDRD) (>89) Glucose (74-104) mg/dL POC Whole Bld Glucose 152 154 (70-100) mg/dL Calcium (8.5-10.3) mg/dL Total Bilirubin (0.2-1.0) mg/dL AST (10-42) IU/L ALT (10-60) IU/L Alkaline Phosphatase (42-121) IU/L Total Protein (6.4-8.9) g/dL Albumin (3.2-5.5) g/dL Globulin (2.1-4.2) g/dL Albumin/Globulin Ratio (1.0-2.2) Lipase (11-82) U/L Urine Color YELLOW Urine Clarity CLEAR (CLEAR) Urine pH 6.0 (5.0-7.5) PH Ur Specific [place] >=1.030 H (1.002-1.030) Urine Protein TRACE (NEGATIVE) mg/dL Urine Glucose (UA) NEGATIVE (NEGATIVE) mg/dL Urine Ketones NEGATIVE (NEGATIVE) mg/dL Urine Occult Blood NEGATIVE (NEGATIVE) Urine Nitrite NEGATIVE (NEGATIVE) Urine Bilirubin NEGATIVE (NEGATIVE) Urine Urobilinogen 0.2 (NORMAL) (NORMAL) E.U./dL Ur Leukocyte Esterase NEGATIVE (NEGATIVE) Urine RBC 0-5 (0-5) /HPF Urine WBC 0-3 (0-3) /HPF Ur Squamous Epith Cells NONE SEEN (<= Few) Urine Bacteria None Seen (None Seen) /HPF Urine Culture Comments NOT INDICATED 02/05/25 Range/Units 17:54 WBC 12.1 H (4.8-10.8) x10^3/uL RBC 3.91 L (4.70-6.10) 10^6/uL Hgb 10.9 L (14.0-18.0) g/dL Hct 34.9 L (42.0-52.0) % MCV 89.3 (80.0-94.0) fL MCH 27.9 (27.0-31.0) pg MCHC 31.2 L (32.0-36.0) g/dL RDW 15.7 H (12.0-15.0) % Plt Count 277 (130-450) 10^3/uL MPV 8.6 (7.4-11.4) fL Neut # (Auto) 9.5 H (1.5-6.6) 10^3/uL Lymph # (Auto) 1.3 L (1.5-3.5) 10^3/uL [place] # (Auto) 1.2 H (0.0-1.0) 10^3/uL Eos # (Auto) 0.2 (0.0-0.7) 10^3/uL Baso # (Auto) 0.0 (0.0-0.1) 10^3/uL Absolute Nucleated RBC 0.00 x10^3/uL Nucleated RBC % 0.0 /100WBC PT 11.8 (9.9-12.6) secs INR 1.1 (0.8-1.2) Sodium 138 (135-145) mmol/L Potassium 5.1 H (3.5-4.5) mmol/L Chloride 107 (101-111) mmol/L Carbon Dioxide 24 (21-32) mmol/L Anion Gap 7.0 (6-13) BUN 30 H (6-20) mg/dL Creatinine 1.5 H (0.6-1.3) mg/dL Estimated GFR (MDRD) 45 L (>89) Glucose 183 H (74-104) mg/dL POC Whole Bld Glucose (70-100) mg/dL Calcium 9.4 (8.5-10.3) mg/dL Total Bilirubin 0.3 (0.2-1.0) mg/dL AST 11 (10-42) IU/L ALT 11 (10-60) IU/L Alkaline Phosphatase 50 (42-121) IU/L Total Protein 5.8 L (6.4-8.9) g/dL Albumin 3.9 (3.2-5.5) g/dL Globulin 1.9 L (2.1-4.2) g/dL Albumin/Globulin Ratio 2.1 (1.0-2.2) Lipase 35 (11-82) U/L Urine Color Urine Clarity (CLEAR) Urine pH (5.0-7.5) PH Ur Specific [place] (1.002-1.030) Urine Protein (NEGATIVE) mg/dL Urine Glucose (UA) (NEGATIVE) mg/dL Urine Ketones (NEGATIVE) mg/dL Urine Occult Blood (NEGATIVE) Urine Nitrite (NEGATIVE) Urine Bilirubin (NEGATIVE) Urine Urobilinogen (NORMAL) E.U./dL Ur Leukocyte Esterase (NEGATIVE) Urine RBC (0-5) /HPF Urine WBC (0-3) /HPF Ur Squamous Epith Cells (<= Few) Urine Bacteria (None Seen) /HPF Urine Culture Comments Assessment/Plan Problem List (1) Femoral neck fracture: Impression: ground-level fall resulting in right femoral neck fracture with obvious deformity. Ortho plans to repair AM 02/08 Planning for PT post operatively. This patient may be able to dc to home vs SNF. he is able and well at baseline, and has help at home. N.p.o. after midnight. Discussed with Dr Schwartz this AM Qualifiers: Encounter type: initial encounter Fracture type: closed Laterality: r ight Qualified Code(s): S72.001A - Fracture of unspecified part of neck of right femur, initial encounter for closed fracture (2) Hyperkalemia: Impression: resolved. unclear etiology. (3) Leukocytosis: Impression: Persistent. 11.7 this aM. no fevers. UA negative, no cough. possibly stress. continue to monitor with CBC in AM. (4) Renal insufficiency: Impression: Laboratory Tests 02/05/25 02/06/25 17:54 05:31 Creatinine 1.5 H 1.2 improved overnight with hydration. I am going to continue NS until post operative. (5) Diabetes: Impression: Laboratory Tests 02/05/25 02/06/25 02/06/25 22:58 00:10 06:06 POC Whole Bld Glucose 154 152 129 02/06/25 11:33 POC Whole Bld Glucose 120 A1C 7%- adequate control given his age Has needed one unit of insulin since admit. Goal will be to keep post op blood sugars less than 180. Cont with SSI through these changes of diet resumption and NPO in prep for OR. (6) Hypertension: Impression: Home medications include losartan 25 mg daily lisinopril 5 mg daily. I find it odd that his medications have been reconciled in this patient lists both an STACEY inhibitor and an angiotensin receptor marti. Patient is not aware of his medication list.If he is indeed taking these 2 medications together it could be the cause of his hyperkalemia. Discussed further today. he and his are unsure. his is going to bring all the meds in tomorrow. I will sort through them. He was a patient of Dr Jones, then at [facility] for a brief time, and now is seeing Dr Mercado in [facility] [place]. All of this in the last year. Blood pressures acceptable. (7) Hyperlipidemia: Impression: Will resume home statin when appropriate. (8) Depression: Impression: Home ativan and buproprion restarted. This patient's diagnosis and treatment plan was discussed this AM with attending physician as a part of multi disciplinary rounding meeting. I have spent 40 minutes in the care of this patient today. This includes time [id number], review and ordering of diagnostic imaging and laboratory studies and consultation with other providers. Monitoring the patient's signs symptoms, evaluation of medication effectiveness and patient's response to treatment.
--- NOTE | 2025-02-06 14:14 | ADVANCE CARE PLANNING NOTE ---
Advance Care Planning Planning Encounter Date: 02/06/25 Purpose: fill out POLST Parties in Attendance: Kerry Abad PA-C, Patient and (Vishnu and Leslye Crews) Decisional Capacity of the Patient: decisional, has insight Diagnosis for Encounter (1) Femoral neck fracture: Qualifiers: Encounter type: initial encounter Fracture type: closed Laterality: right Qualified Code(s): S72.001A - Fracture of unspecified part of neck of right femur, initial encounter for closed fracture (2) Hyperkalemia: (3) Leukocytosis: (4) Renal insufficiency: (5) Diabetes: (6) Hypertension: (7) Hyperlipidemia: (8) Depression: Encounter Subjective/Patient's Story: He is very active in the community and he and his have a group of friends that support them. He says that he does not exercise enough, but he continues to walk, and take care of the yard. He is independent in all ADLs. He and his just dealt with the of her brother, who lived about 30 years with a heart transplant. he was in his 40's when he got it and live to the age of 72. 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 Objective/Medical Story: Hip fracture in a very well gentleman. he has had DM for many years, but maintains control of it. Primary care has been challenging lately. They were patients of Dr Jones, then dissatified with care received at [facility]. now going to [facility] for PCP. I am concerned about his meds, and if he is taking the right things at home. I have asked his to bring the pill bottles in to me here. Goals of Care: DNR, but cannot decide if he would want to be intubated. POLST NOT completed today- patient wants to think about it. I have encouraged him to speak with his and decide what makes the most sense for him. Plan: ongoing discussion of desires for care. Code Status: Do Not Attempt Resuscitation Time spent on advance care plannin min
--- NOTE | 2025-02-06 15:24 | PHARMACY PROGRESS NOTE ---
Best Possible Medication History Admit Date and Time: 02/05/252050 Home Medications Medication Instructions Recorded Confirmed Type lisinopril 5 mg tablet 5 mg PO DAILY 03/08/1502/05 History lorazepam 0.5 mg tablet 0.5 mg PO Q24HR@2100 PRN Anx iety 03/08/15 02/05/25 History bupropion HCl 150 mg 24 hr tablet, 150 mg PO DAILY 02/05/25 History extended release losartan 25 mg tablet 25 mg PO DAILY 02/05/2501/20 History pioglitazone 15 mg tablet 15 mg PO DAILY 02/05/2501/20 History pravastatin 40 mg tablet 40 mg PO QPM 02/05/25 History triamcinolone acetonide 0.1 % 1 applic topical BID PRN rash 02/05/25 02/05/25 History topical ointment metformin 500 mg tablet 1,000 mg PO BID 02/06/25 History Processed by: Pharmacy Medications reviewed in ED?: No Medication History completed: Yes Patient Interview: Completed (PT AND THINK HE'S TAKING BOTH LISINOPRIL AND LOSARTAN BUT ARE NOT 100% CERTAIN. WILL BRING IN BOTTLE AND LET NURSING KNOW TO LET PHARMACY KNOW.) [facility] Statement: As the person ultimately responsible for medication therapy, providers are able to order a medication from an existing home medication list in [facility] via the "Reconcile Routine" prior to Confirmation of that medication by medical support specialist. Such practice is discouraged except when the physician, in their clinical ju dgment, deems that a medical need exists for a medication without regard to previous use.
[2025-02-06] MEDS: ACETAMINOPHEN 325 MG TABLET PO PRN (18:22)
[2025-02-07 05:50] LABS: HCT - HEMATOCRIT 31.2 % (42.0-52.0); HGB - HEMOGLOBIN 10.1 g/dL (14.0-18.0); MEAN PLATELET VOLUME 8.9 fL (7.4-11.4); NRBC ABSOLUTE COUNT (AUTO) 0.00 x10^3/uL; NUCLEATED RED BLOOD CELLS AUTO 0.0 /100WBC; PLT - PLATELET COUNT 239 10^3/uL (130-450); RED CELL DISTRIBUTION WIDTH 15.6 % (12.0-15.0)
[2025-02-07 06:04] LABS: BUN - BLOOD UREA NITROGEN 15.0 mg/dL (6-20); CARBON DIOXIDE - CO2 24.0 mmol/L (21-32); CREATININE 1.0 mg/dL (0.6-1.3); GFR - MDRD 72.0 (>89)
--- NOTE | 2025-02-07 07:52 | CONSULTATION NOTE ---
Chief Complaint Chief Complaint Chief Complaint: Right hip pain History of Present Illness History of Present Illness HPI Comment/Other: The patient states that he fell to the ground. When asking him how he fell he states he did not trip over anything and he feels like he just fell. I asked him if he felt like his hip broke first and he does not know. He does not complain of any lightheaded or dizziness or loss of consciousness. Most of the pain is located in the right hip and he states it is not that bad. Meds/Allgy Home Medications Ambulatory Orders Medication Instructions Recorded Confirmed lisinopril 5 mg tablet 5 mg PO DAILY 03/08/1502/05 lorazepam 0.5 mg tablet 0.5 mg PO Q24HR@2100 PRN Anx iety 03/08/15 02/05/25 bupropion HCl 150 mg 24 hr tablet, 150 mg PO DAILY 02/05/25 extended release losartan 25 mg tablet 25 mg PO DAILY 02/05/2501/20 pioglitazone 15 mg tablet 15 mg PO DAILY 02/05/2501/20 pravastatin 40 mg tablet 40 mg PO QPM 02/05/25 triamcinolone acetonide 0.1 % 1 applic topical BID PRN rash 02/05/25 02/05/25 topical ointment metformin 500 mg tablet 1,000 mg PO BID 02/06/25 Allergies Allergies Allergy/AdvReac Type Severity Reaction Status Date / Time ciprofloxacin (From Cipro) AdvReac Unknown Verified 04/23/22 08:58 PFSH Active Problems All Active Problems (Updated 02/05/25 @ 21:33 by GREGORY Burton) Leukocytosis (Acute) Renal insufficiency (Acute) Hyperkalemia (Acute) Depression (Chronic) Hyperlipidemia (Chronic) Hypertension (Chronic) Diabetes (Chronic) Femoral neck fracture (Acute) Social History Social History Smoking Status: Unknown if ever smoked If you are a former smoker, when did you quit? (Date/Year): 1999 How many cigarettes a day do you smoke? (20 cigarettes=1 Pk): 20 Do you dip or chew tobacco?: No Do you vape?: No Level: Independent Do you feel safe in your home environment?: Yes History of physical, verbal, emotional, or financial abuse?: No Substance Use: cannabis (any form) POLST Patient has POLST: No POLST on file?: No Results Lab Results Lab results reviewed: Yes 02/07/25 05:19 02/07/25 05:19 Other Lab Results: Lab Results x24hrs 02/07/25 02/07/25 02/07/25 Range/Units 06:29 05:19 00:08 WBC 11.3 H (4.8-10.8) x10^3/uL RBC 3.54 L (4.70-6.10) 10^6/uL Hgb 10.1 L (14.0-18.0) g/dL Hct 31.2 L (42.0-52.0) % MCV 88.1 (80.0-94.0) fL MCH 28.5 (27.0-31.0) pg MCHC 32.4 (32.0-36.0) g/dL RDW 15.6 H (12.0-15.0) % Plt Count 239 (130-450) 10^3/uL MPV 8.9 (7.4-11.4) fL Neut # (Auto) 8.0 H (1.5-6.6) 10^3/uL Lymph # (Auto) 1.1 L (1.5-3.5) 10^3/uL [place] # (Auto) 1.8 H (0.0-1.0) 10^3/uL Eos # (Auto) 0.2 (0.0-0.7) 10^3/uL Baso # (Auto) 0.0 (0.0-0.1) 10^3/uL Absolute Nucleated RBC 0.00 x10^3/uL Band Neuts % (Manual) Not Reportable Abnorm Lymph % (Manual) Not Reportable Nucleated RBC % 0.0 /100WBC Neutrophils # (Manual) Not Reportable Lymphocytes # (Manual) Not Reportable Monocytes # (Manual) Not Reportable Eosinophils # (Manual) Not Reportable Basophils # (Manual) Not Reportable Differential Comment MANUAL=AUTO DIFF Sodium 135 (135-145) mmol/L Potassium 3.9 (3.5-4.5) mmol/L Chloride 106 (101-111) mmol/L Carbon Dioxide 24 (21-32) mmol/L Anion Gap 5.0 L (6-13) BUN 15 (6-20) mg/dL Creatinine 1.0 (0.6-1.3) mg/dL Estimated GFR (MDRD) 72 L (>89) Glucose 196 H (74-104) mg/dL POC Whole Bld Glucose 147 199 (70-100) mg/dL Estimat Average Glucose (70-100) mg/dL Hemoglobin A1c % (4.27-6.07) % Calcium 8.4 L (8.5-10.3) mg/dL 02/06/25 02/06/25 02/06/25 Range/Units 17:15 11:33 05:31 WBC (4.8-10.8) x10^3/uL RBC (4.70-6.10) 10^6/uL Hgb (14.0-18.0) g/dL Hct (42.0-52.0) % MCV (80.0-94.0) fL MCH (27.0-31.0) pg MCHC (32.0-36.0) g/dL RDW (12.0-15.0) % Plt Count (130-450) 10^3/uL MPV (7.4-11.4) fL Neut # (Auto) (1.5-6.6) 10^3/uL Lymph # (Auto) (1.5-3.5) 10^3/uL [place] # (Auto) (0.0-1.0) 10^3/uL Eos # (Auto) (0.0-0.7) 10^3/uL Baso # (Auto) (0.0-0.1) 10^3/uL Absolute Nucleated RBC x10^3/uL Band Neuts % (Manual) Abnorm Lymph % (Manual) Nucleated RBC % /100WBC Neutrophils # (Manual) Lymphocytes # (Manual) Monocytes # (Manual) Eosinophils # (Manual) Basophils # (Manual) Differential Comment Sodium (135-145) mmol/L Potassium (3.5-4.5) mmol/L Chloride (101-111) mmol/L Carbon Dioxide (21-32) mmol/L Anion Gap (6-13) BUN (6-20) mg/dL Creatinine (0.6-1.3) mg/dL Estimated GFR (MDRD) (>89) Glucose (74-104) mg/dL POC Whole Bld Glucose 149 120 (70-100) mg/dL Estimat Average Glucose 154 H (70-100) mg/dL Hemoglobin A1c % 7.0 H (4.27-6.07) % Calcium (8.5-10.3) mg/dL Exam Exam Vital Signs: Vital Signs x48h Temp Pulse Resp BP Pulse Ox 02/07/25 00:10 36.9 C 99 14 139/68 H 96 Physical exam reveals the right hip to be shortened and externally rotated. He has good sensation good pulses good capillary refill. Unable to straight leg raise. Conclusion/Plan Problem List (1) Femoral neck fracture: Plan: I reviewed the CT scan and the patient has a displaced femoral neck fracture.I have explained the injury to the patient and I have recommended right hip hemiarthroplasty. The patient understands all the risks and benefits of the procedure did sign a consent and wishes to proceed. Qualifiers: Encounter type: initial encounter Fracture type: closed [facility]ality: [facility] Qualified Code(s): S72.001A - Fracture of unspecified part of neck of right femur, initial encounter for closed fracture (2) Hyperkalemia: (3) Leukocytosis: (4) Renal insufficiency: (5) Diabetes: (6) Hypertension: (7) Hyperlipidemia: (8) Depression: Lab Results Lab results reviewed: Yes 02/07/25 05:19 02/07/25 05:19
[2025-02-07] MEDS ORDERED: fentaNYL 100 MCG/2 ML VIAL ONE (08:21)
[2025-02-07] MEDS ORDERED: MIDAZOLAM 2 MG/2 ML VIAL ONE (08:21)
[2025-02-07] MEDS ORDERED: BUPIVACAINE 0.25% PF 30 ML VIAL ONE (08:24)
--- NOTE | 2025-02-07 08:27 | ANESTHESIA PROCEDURE NOTE ---
Pre-Anesthesia VS, & Labs Diagnosis Surgical Diagnosis:: Displaced right femoral neck fracture Procedure Procedure: Right hip hemiarthroplasty Vitals Vital Signs: Temp Pulse Resp BP Pulse Ox 36.9 C 99 14 139/68 H 96 02/07/25 00:10 02/07/25 00:10 02/07/25 00:10 02/07/25 00:10 02/07/25 00:10 NPO NPO: >8 hours Lab Results Current Lab Results: Laboratory Tests 02/07/25 06:29: POC Whole Bld Glucose 147 02/07/25 05:19: WBC 11.3 H, RBC 3.54 L, Hgb 10.1 L, Hct 31.2 L, MCV 88.1, MCH 28.5, MCHC 32.4, RDW 15.6 H, Plt Count 239, MPV 8.9, Neut # (Auto) 8.0 H, Lymph # (Auto) 1.1 L, [place] # (Auto) 1.8 H, Eos # (Auto) 0.2, Baso # (Auto) 0.0, Absolute Nucleated RBC 0.00, Band Neuts % (Manual) Not Reportable, Abnorm Lymph % (Manual) Not Reportable, Nucleated RBC % 0.0, Neutrophils # (Manual) Not Reportable, Lymphocytes # (Manual) Not Reportable, Monocytes # (Manual) Not Reportable, Eosinophils # (Manual) Not Reportable, Basophils # (Manual) Not Reportable, Differential Comment MANUAL=AUTO DIFF, Sodium 135, Potassium 3.9, Chloride 106, Carbon Dioxide 24, Anion Gap 5.0 L, BUN 15, Creatinine 1.0, E stimated GFR (MDRD) 72 L, Glucose 196 H, Calcium 8.4 L 02/07/25 00:08: POC Whole Bld Glucose 199 02/06/25 17:15: POC Whole Bld Glucose 149 02/06/25 11:33: POC Whole Bld Glucose 120 02/06/25 06:06: POC Whole Bld Glucose 129 02/06/25 05:31: WBC 11.7 H, RBC 3.95 L, Hgb 11.0 L, Hct 35.5 L, MCV 89.9, MCH 27.8, MCHC 31.0 L, RDW 15.7 H, Plt Count 266, MPV 8.9, Neut # (Auto) 8.6 H, L ymph # (Auto) 1.4 L, [place] # (Auto) 1.4 H, Eos # (Auto) 0.2, Baso # (Auto) 0.1, Absolute Nucleated RBC 0.00, Nucleated RBC % 0.0, Sodium 137, Potassium 4.6 H, Chloride 107, Carbon Dioxide 24, Anion Gap 6.0, BUN 27 H, Creatinine 1.2, E stimated GFR (MDRD) 58 L, Glucose 137 H, Estimat Average Glucose 154 H, H emoglobin A1c % 7.0 H, Calcium 8.9 02/06/25 00:10: POC Whole Bld Glucose 152 02/05/25 22:58: POC Whole Bld Glucose 154 02/05/25 17:54: WBC 12.1 H, RBC 3.91 L, Hgb 10.9 L, Hct 34.9 L, MCV 89.3, MCH 27.9, MCHC 31.2 L, RDW 15.7 H, Plt Count 277, MPV 8.6, Neut # (Auto) 9.5 H, L ymph # (Auto) 1.3 L, [place] # (Auto) 1.2 H, Eos # (Auto) 0.2, Baso # (Auto) 0.0, Absolute Nucleated RBC 0.00, Nucleated RBC % 0.0, PT 11.8, INR 1.1, Sodium 138, Potassium 5.1 H, Chloride 107, Carbon Dioxide 24, Anion Gap 7.0, BUN 30 H, C reatinine 1.5 H, Estimated GFR (MDRD) 45 L, Glucose 183 H, Calcium 9.4, Total Bilirubin 0.3, AST 11, ALT 11, Alkaline Phosphatase 50, Total Protein 5.8 L, Albumin 3.9, Globulin 1.9 L, Albumin/Globulin Ratio 2.1, Lipase 35 Lab results reviewed: Yes 02/07/25 05:19 02/07/25 05:19 Meds/Allgy Home Medications Ambulatory Orders Medication Instructions Recorded Confirmed lisinopril 5 mg tablet 5 mg PO DAILY 03/08/1502/05 lorazepam 0.5 mg tablet 0.5 mg PO Q24HR@2100 PRN Anx iety 03/08/15 02/05/25 bupropion HCl 150 mg 24 hr tablet, 150 mg PO DAILY 02/05/25 extended release losartan 25 mg tablet 25 mg PO DAILY 02/05/2501/20 pioglitazone 15 mg tablet 15 mg PO DAILY 02/05/2501/20 pravastatin 40 mg tablet 40 mg PO QPM 02/05/25 triamcinolone acetonide 0.1 % 1 applic topical BID PRN rash 02/05/25 02/05/25 topical ointment metformin 500 mg tablet 1,000 mg PO BID 02/06/25 Allergies Allergies Allergy/AdvReac Type Severity Reaction Status Date / Time ciprofloxacin (From Cipro) AdvReac Unknown Verified 04/23/22 08:58 PFS Active Problems All Active Problems Leukocytosis (Acute) Renal insufficiency (Acute) Hyperkalemia (Acute) Depression (Chronic) Hyperlipidemia (Chronic) Hypertension (Chronic) Diabetes (Chronic) Femoral neck fracture (Acute) Social History Social History Smoking Status: Unknown if ever smoked If you are a former smoker, when did you quit? (Date/Year): 1999 How many cigarettes a day do you smoke? (20 cigarettes=1 Pk): 20 Do you dip or chew tobacco?: No Do you vape?: No Level: Independent Do you feel safe in your home environment?: Yes History of physical, verbal, emotional, or financial abuse?: No Substance Use: cannabis (any form) POLST Patient has POLST: No POLST on file?: No Anesthesia Exam (Expanded) Exam General: Alert and Oriented x3 Dental: Dentures full Upper Mouth Openin Fingerbreadth Mallampati classification: II Thyromental Distance: 4-6 cm Respiratory: Lungs clear and Normal breath sounds Cardiovascular: Regular rate Mental/Cognitive Status: Alert/Oriented X3 and Normal for patient Cognitive Status: Within normal limits Exam Constitutional normal general appearance Neck/C-Spine cervical full ROM noted Respiratory breath sounds equal bilaterally and normal respiratory effort Cardiovascular normal heart rate noted and regular rhythm noted Plan Problem List (1) Femoral neck fracture: Plan: I reviewed the CT scan and the patient has a displaced femoral neck fracture.I have explained the injury to the patient and I have recommended right hip hemiarthroplasty. The patient understands all the risks and benefits of the procedure did sign a consent and wishes to proceed. Qualifiers: Encounter type: initial encounter Fracture type: closed Laterality: r ight Qualified Code(s): S72.001A - Fracture of unspecified part of neck of right femur, initial encounter for closed fracture (2) Hyperkalemia: (3) Leukocytosis: (4) Renal insufficiency: (5) Diabetes: (6) Hypertension: (7) Hyperlipidemia: (8) Depression: Plan Anesthesia Type: Spinal Consent for Procedure(s) Verified and Reviewed: Yes Code Status: Attempt Resuscitation ASA Classification ASA classification: 2-Mild systemic disease Is this case an emergency?: Yes
[2025-02-07] MEDS ORDERED: PROPOFOL 500 MG/50 ML 500 MG/50 ML VIAL ONE (08:34)
[2025-02-07] MEDS ORDERED: ONDANSETRON 4 MG/2 ML VIAL IVP PRN (10:16)
[2025-02-07] MEDS ORDERED: MORPHINE 2 MG/ML CARPUJECT IVP PRN (10:16)
[2025-02-07] MEDS ORDERED: HYDROmorphone 0.5 MG/0.5 ML SYRINGE IVP PRN (10:16)
[2025-02-07] MEDS ORDERED: NALOXONE 0.4 MG/ML VIAL IVP PRN (10:16)
[2025-02-07] MEDS ORDERED: METOCLOPRAMIDE 10 MG/2 ML VIAL IVP PRN (10:16)
[2025-02-07] MEDS ORDERED: ePHEDrine 50 MG/ML VIAL IVP PRN (10:16)
[2025-02-07] MEDS ORDERED: ATROPINE ABBOJECT 1 MG/10 ML SYRINGE IVP PRN (10:16)
[2025-02-07] MEDS ORDERED: fentaNYL 100 MCG/2 ML VIAL IVP PRN (10:16)
--- NOTE | 2025-02-07 10:55 | ANESTHESIA POST OP EVALUATION ---
Anesthesia Post Eval Post Anesthesia Eval Vitals: Last Vital Signs Temp 37.4 C 02/07/25 10:30 Pulse 93 02/07/25 10:30 Resp 23 02/07/25 10:30 BP 120/56 L 02/07/25 10:30 Pulse Ox 95 02/07/25 10:30 CV Function Including HR & BP: Stable Pain Control: Satisfactory Nausea & Vomiting: Negative Mental Status: Baseline Respiratory Status: Airway Patent Hydration Status: Satisfactory Anesthesia Complications: None
[2025-02-07] MEDS ORDERED: LACTATED RINGERS 1,000 ML IV SCH (11:00)
--- NOTE | 2025-02-07 12:45 | PROVIDER PROGRESS NOTE ---
Subjective Prog Note Date Prog Note Date: 02/07/25 Subjective Subjective: Medication reconcilation has been confusing. I reviewed patient' medication bottles today. He is taking : Metformin 1000mg BID Pioglitazone 15mg QD Pravastatin 40mg QD Losartan 25mg QD Lorazepam 0.5 TID Buproprion 150mg QD Hip fracture repaired first thing this AM. he is back up on the floor, feeling well, has had lunch and block starting to wear off. Doing well. later this afternoon, pain is controlled w oxycodone. Current Medications Current Medications Current Medications: Current Medications Generic Name Dose Route Start Last Admin Trade Name Freq PRN Reason Stop Dose Admin Acetaminophen 1,000 mg 02/07/25 14:00 Acetaminophen 500 Mg Tablet PO TID NALLELY Bupropion HCl 150 mg 02/06/25 09:00 02/07/25 11:31 Bupropion Xl 150 Mg Tablet PO 150 mg DAILY NALLELY Administration Enoxaparin Sodium 40 mg 02/08/25 09:00 Enoxaparin 40 Mg/0.4 Ml Syringe SUBQ DAILY NALLELY Hydromorphone HCl 0.5 mg 02/05/25 20:51 02/07/25 08:02 Hydromorphone 0.5 Mg/0.5 Ml Syringe IVP 0.5 mg Q2H PRN Administration Pain 8 to 10 Insulin Human Lispro 1 - 5 unit 02/07/25 17:00 Insulin Lispro 300 Unit/3 Ml Pen SUBQ 0800,1200,1700,2100 NALLELY Protocol Lorazepam 0.5 mg 02/07/25 12:38 Lorazepam 0.5 Mg Tablet PO TID PRN Anxiety Melatonin 3 mg 02/05/25 21:48 02/06/25 20:58 Melatonin 3 Mg Tablet PO 3 mg QPM NALLELY Administration Ondansetron HCl 4 mg 02/05/25 20:51 Ondansetron 4 Mg/2 Ml Vial IVP Q6HR PRN Nausea / Vomiting Oxycodone HCl 5 mg 02/07/25 12:38 Oxycodone 5 Mg Tablet PO Q4HR PRN Moderate Pain (Level 4-6) Polyethylene Glycol 17 gm 02/06/25 09:00 02/07/25 11:32 Polyethylene Glycol 3350 17 Gm Packet PO 17 gm DAILY NALLELY Administration Sodium Chloride 10 ml 02/05/25 20:51 02/06/25 04:12 Sodium Chloride Flush 0.9% 10 Ml Syringe IVP 10 ml PRN PRN Administration NEEDED PER PROVIDER ORDERS Sodium Chloride 10 ml 02/06/25 01:00 02/07/25 11:32 Sodium Chloride Flush 0.9% 10 Ml Syringe IVP 10 ml 0100,0900,1700 NALLELY Administration Objective Vital Signs/Intake & Output Reviewed Vital Signs: Yes Vital Signs: Vital Signs x48h Temp Pulse Pulse Resp BP BP Pulse Ox 02/07/25 11:29 36.6 C 91 16 138/68 H 93 02/07/25 11:14 36.6 C 87 20 117/69 92 02/07/25 10:59 36.6 C 93 12 140/68 H 95 02/07/25 10:44 36.6 C 89 12 123/65 94 02/07/25 10:30 37.4 C 93 23 120/56 L 95 02/07/25 10:20 87 16 109/62 95 02/07/25 10:15 90 14 113/58 L 94 02/07/25 10:10 91 18 110/62 95 02/07/25 10:05 37.4 C 87 22 111/66 99 02/07/25 08:29 37.0 C 91 20 153/68 H 96 Intake & Output: Intake & Output 02/04/25 02/05/25 02/06/25 02/07/25 23:59 23:59 23:59 23:59 Intake Total 2203 / 2203 3205 / 3205 Output Total 150 / 150 1895 / 1895 1000 / 1000 Balance -150 / -150 308 / 308 2205 / 2205 Weight (kg) 65 kg Objective General Appearance: positive No acute distress and Alert Eyes Bilateral: positive Normal inspection ENT: positive ENT inspection nml Neck: positive Nml inspection Respiratory: positive Chest non-tender and Breath sounds nml Cardiovascular: positive Regular rate & rhythm and No murmur Abdomen: positive No distention Back: positive Nml inspection Skin: positive Color nml Extremities: positive Non-tender and Other (right lateral hip dressing intact) Neurologic/Psychiatric: positive Oriented x3 Lab Results 02/07/25 05:19 02/07/25 05:19 Other Labs: Lab Results x24hrs 02/07/25 02/07/25 02/07/25 Range/Units 11:27 10:10 06:29 WBC (4.8-10.8) x10^3/uL RBC (4.70-6.10) 10^6/uL Hgb (14.0-18.0) g/dL Hct (42.0-52.0) % MCV (80.0-94.0) fL MCH (27.0-31.0) pg MCHC (32.0-36.0) g/dL RDW (12.0-15.0) % Plt Count (130-450) 10^3/uL MPV (7.4-11.4) fL Neut # (Auto) (1.5-6.6) 10^3/uL Lymph # (Auto) (1.5-3.5) 10^3/uL [place] # (Auto) (0.0-1.0) 10^3/uL Eos # (Auto) (0.0-0.7) 10^3/uL Baso # (Auto) (0.0-0.1) 10^3/uL Absolute Nucleated RBC x10^3/uL Band Neuts % (Manual) Abnorm Lymph % (Manual) Nucleated RBC % /100WBC Neutrophils # (Manual) Lymphocytes # (Manual) Monocytes # (Manual) Eosinophils # (Manual) Basophils # (Manual) Differential Comment Sodium (135-145) mmol/L Potassium (3.5-4.5) mmol/L Chloride (101-111) mmol/L Carbon Dioxide (21-32) mmol/L Anion Gap (6-13) BUN (6-20) mg/dL Creatinine (0.6-1.3) mg/dL Estimated GFR (MDRD) (>89) Glucose (74-104) mg/dL POC Whole Bld Glucose 98 104 147 (70-100) mg/dL Estimat Average Glucose (70-100) mg/dL Hemoglobin A1c % (4.27-6.07) % Calcium (8.5-10.3) mg/dL 02/07/25 02/07/25 02/06/25 Range/Units 05:19 00:08 17:15 WBC 11.3 H (4.8-10.8) x10^3/uL RBC 3.54 L (4.70-6.10) 10^6/uL Hgb 10.1 L (14.0-18.0) g/dL Hct 31.2 L (42.0-52.0) % MCV 88.1 (80.0-94.0) fL MCH 28.5 (27.0-31.0) pg MCHC 32.4 (32.0-36.0) g/dL RDW 15.6 H (12.0-15.0) % Plt Count 239 (130-450) 10^3/uL MPV 8.9 (7.4-11.4) fL Neut # (Auto) 8.0 H (1.5-6.6) 10^3/uL Lymph # (Auto) 1.1 L (1.5-3.5) 10^3/uL [place] # (Auto) 1.8 H (0.0-1.0) 10^3/uL Eos # (Auto) 0.2 (0.0-0.7) 10^3/uL Baso # (Auto) 0.0 (0.0-0.1) 10^3/uL Absolute Nucleated RBC 0.00 x10^3/uL Band Neuts % (Manual) Not Reportable Abnorm Lymph % (Manual) Not Reportable Nucleated RBC % 0.0 /100WBC Neutrophils # (Manual) Not Reportable Lymphocytes # (Manual) Not Reportable Monocytes # (Manual) Not Reportable Eosinophils # (Manual) Not Reportable Basophils # (Manual) Not Reportable Differential Comment MANUAL=AUTO DIFF Sodium 135 (135-145) mmol/L Potassium 3.9 (3.5-4.5) mmol/L Chloride 106 (101-111) mmol/L Carbon Dioxide 24 (21-32) mmol/L Anion Gap 5.0 L (6-13) BUN 15 (6-20) mg/dL Creatinine 1.0 (0.6-1.3) mg/dL Estimated GFR (MDRD) 72 L (>89) Glucose 196 H (74-104) mg/dL POC Whole Bld Glucose 199 149 (70-100) mg/dL Estimat Average Glucose (70-100) mg/dL Hemoglobin A1c % (4.27-6.07) % Calcium 8.4 L (8.5-10.3) mg/dL 02/06/25 Range/Units 05:31 WBC (4.8-10.8) x10^3/uL RBC (4.70-6.10) 10^6/uL Hgb (14.0-18.0) g/dL Hct (42.0-52.0) % MCV (80.0-94.0) fL MCH (27.0-31.0) pg MCHC (32.0-36.0) g/dL RDW (12.0-15.0) % Plt Count (130-450) 10^3/uL MPV (7.4-11.4) fL Neut # (Auto) (1.5-6.6) 10^3/uL Lymph # (Auto) (1.5-3.5) 10^3/uL [place] # (Auto) (0.0-1.0) 10^3/uL Eos # (Auto) (0.0-0.7) 10^3/uL Baso # (Auto) (0.0-0.1) 10^3/uL Absolute Nucleated RBC x10^3/uL Band Neuts % (Manual) Abnorm Lymph % (Manual) Nucleated RBC % /100WBC Neutrophils # (Manual) Lymphocytes # (Manual) Monocytes # (Manual) Eosinophils # (Manual) Basophils # (Manual) Differential Comment Sodium (135-145) mmol/L Potassium (3.5-4.5) mmol/L Chloride (101-111) mmol/L Carbon Dioxide (21-32) mmol/L Anion Gap (6-13) BUN (6-20) mg/dL Creatinine (0.6-1.3) mg/dL Estimated GFR (MDRD) (>89) Glucose (74-104) mg/dL POC Whole Bld Glucose (70-100) mg/dL Estimat Average Glucose 154 H (70-100) mg/dL Hemoglobin A1c % 7.0 H (4.27-6.07) % Calcium (8.5-10.3) mg/dL Assessment/Plan Problem List (1) Femoral neck fracture: Impression: ground-level fall resulting in right femoral neck fracture with obvious deformity. POD #0 right hemiarthroplasty. Planning for PT post operatively- PT should see him in the AM. This patient may be able to dc to home vs SNF. he is able and well at baseline, and has help at home. I have reviewed pre op imaging with the patient and he understands both the fracture, and how it was repaired. No post op activity or weight bearing restrictions. Disposition pending PT recommendations Qualifiers: Encounter type: initial encounter Fracture type: closed Laterality: r ight Qualified Code(s): S72.001A - Fracture of unspecified part of neck of right femur, initial encounter for closed fracture (2) Hyperkalemia: Impression: resolved. unclear etiology. (3) Leukocytosis: Impression: Persistent. no fevers. UA negative, no cough. possibly stress. continue to monitor with CBC in AM. Laboratory Tests 02/05/25 02/06/25 02/07/25 17:54 05:31 05:19 WBC 12.1 H 11.7 H 11.3 H (4) Renal insufficiency: Impression: 02/05/25 02/06/25 17:54 05:31 Creatinine 1.5 H 1.2 Laboratory Tests 02/07/25 05:19 Creatinine 1.0 I have stopped IVF. he is eating and drinking well post operatively. Would recommend close montioring by his PCP (5) Diabetes: Impression: Laboratory Tests 02/05/25 02/06/25 02/06/25 22:58 00:10 06:06 POC Whole Bld Glucose 154 152 129 02/06/25 11:33 POC Whole Bld Glucose 120 A1C 7%- adequate control given his age Has needed one unit of insulin since admit. Goal will be to keep post op blood sugars less than 180. Cont with SSI through these changes of diet resumption. he can restart his home DM meds at pa (6) Hypertension: Impression: Home medications include losartan 25 mg daily lisinopril 5 mg daily. I find it odd that his medications have been reconciled in this patient lists both an STACEY inhibitor and an angiotensin receptor marti. Patient is not aware of his medication list.If he is indeed taking these 2 medications together it could be the cause of his hyperkalemia. Discussed further HD #2. he and his are unsure. . He was a patient of Dr Jones, then at [facility] for a brief time, and now is seeing Dr Mercado in [facility]. All of this in the last year. Blood pressures acceptable. Please see my note above. I reviewed all medication bottles today, and the list above is exactly what he is taking on a daily basis. (7) Hyperlipidemia: Impression: Will resume home statin when appropriate. (8) Depression: Impression: Home ativan and buproprion restarted. This patient's diagnosis and treatment plan was discussed this AM with attending physician as a part of multi disciplinary rounding meeting. I have spent 42 minutes in the care of this patient today. This includes time [id number], review and ordering of diagnostic imaging and laboratory studies and consultation with other providers. Monitoring the patient's signs symptoms, evaluation of medication effectiveness and patient's response to treatment.
[2025-02-07] MEDS: ACETAMINOPHEN 500 MG TABLET PO SCH (13:12)
[2025-02-07] MEDS: oxyCODONE 5 MG TABLET PO PRN (14:26)
--- NOTE | 2025-02-07 17:30 | PT Plan of Care ---
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 The operative report was not available at the time of PT eval, however, the ordering hospitalist was present during the surgical procedure and confirmed with the surgeon that the pt is WBAT to R LE without any post-op hip restrictions, clearing the pt for PT eval. Please see chart for complete medical hx. The pt was received resting comfortably supine in bed and presented today with decreased R LE strength and ROM, limited activity tolerance, and impaired balance as expected for this phase of his post-op recovery. His overall tolerance throughout this assessment was limited by fatigue and pain more than weakness. At this time DC recommend continued skilled PT intervention while in the acute setting and DC recommendation is SNF vs home with HH therapy pending pt progress. Will update the team as pt progresses. This plan was discussed with the pt and he was in agreement with this. At the end of the session the pt was sitting up in a chair with call light in reach, chair alarm in place and on, and all needs met while eating his dinner. RN and PA updated on pt's status and DC rec. PATIENT/FAMILY GOALS Patient/Family Goals: To be strong enough to go home and to not have any more falls GOALS Improve supine to sit to:: Modified Independent Improve sit to stand to:: Modified Independent Improve pivot transfer ability to:: Modified Independent Improve sit to supine to:: Modified Independent Improve gait ability to:: SBA Advance Assistive Device to:: Front Wheeled Walker Increase distance walked to (in feet):: 25 Other Balance Goal:: with FWW PLAN Frequency: 1-2x/day Duration: Until goals are met DISCHARGE RECOMMENDATIONS Discharge Location: SNF vs home w/ HH therapy Support/Services Needed: With assist DC Equipment Recommended: Front wheeled walker Transport Needs at Discharge: Personal vehicle
[2025-02-07] MEDS: INSULIN LISPRO 300 UNIT/3 ML PEN SUBQ SCH (17:37)
[2025-02-08 04:58] LABS: HCT - HEMATOCRIT 29.2 % (42.0-52.0); HGB - HEMOGLOBIN 9.7 g/dL (14.0-18.0); MEAN PLATELET VOLUME 8.9 fL (7.4-11.4); PLT - PLATELET COUNT 244 10^3/uL (130-450); RED CELL DISTRIBUTION WIDTH 15.4 % (12.0-15.0)
[2025-02-08 05:03] LABS: ABNORMAL LYMPHS % (MANUAL) 0 %; BAND NEUTROPHILS % (MANUAL) 0 %; BASOPHILS # (MANUAL) 0.0 10^3/uL (0-0.1)
[2025-02-08 05:24] LABS: BUN - BLOOD UREA NITROGEN 15.0 mg/dL (6-20); CARBON DIOXIDE - CO2 25.0 mmol/L (21-32); CREATININE 1.1 mg/dL (0.6-1.3); GFR - MDRD 64.0 (>89)
[2025-02-08 05:47] LABS: EOSINOPHILS # (MANUAL) 0.2 10^3/uL (0-0.7); LYMPHOCYTES # (MANUAL) 1.5 10^3/uL (1.5-3.5); LYMPHOCYTES % (MANUAL) 10 %; MONOCYTES # (MANUAL) 1.8 10^3/uL (0.0-1.0); NEUTROPHILS # (MANUAL) 11.6 10^3/uL (1.5-6.6)
[2025-02-08 05:48] LABS: PLATELET ESTIMATE, MANUAL NORMAL (130-450,000) (NORMAL); PLATELET MORPHOLOGY NORMAL APPEARANCE (NORMAL); RBC MORPHOLOGY (MULTIPLE) NORMAL APPEARANCE (NORMAL); WBC MORPHOLOGY (MULTIPLE) NORMAL APPEARANCE (NORMAL)
[2025-02-08] MEDS: ENOXAPARIN 40 MG/0.4 ML SYRINGE SUBQ SCH (08:26)
[2025-02-08] MEDS: LOSARTAN 50 MG TABLET PO SCH (08:26)
--- NOTE | 2025-02-08 12:36 | PROVIDER PROGRESS NOTE ---
Subjective Prog Note Date Prog Note Date: 02/08/25 Subjective Pt reports feeling: Improved Subjective: doing fine. Worked with PT yesterday, and is thinking that he needs a SNF. PT agrees. Current Medications Current Medications Current Medications: Current Medications Generic Name Dose Route Start Last Admin Trade Name Freq PRN Reason Stop Dose Admin Acetaminophen 1,000 mg 02/07/25 14:00 02/08/25 05:15 Acetaminophen 500 Mg Tablet PO 1,000 mg TID NALLELY Administration Bupropion HCl 150 mg 02/06/25 09:00 02/08/25 08:26 Bupropion Xl 150 Mg Tablet PO 150 mg DAILY NALLELY Administration Enoxaparin Sodium 40 mg 02/08/25 09:00 02/08/25 08:26 Enoxaparin 40 Mg/0.4 Ml Syringe SUBQ 40 mg DAILY NALLELY Administration Hydromorphone HCl 0.5 mg 02/05/25 20:51 02/07/25 08:02 Hydromorphone 0.5 Mg/0.5 Ml Syringe IVP 0.5 mg Q2H PRN Administration Pain 8 to 10 Insulin Human Lispro 1 - 5 unit 02/07/25 17:00 02/08/25 11:54 Insulin Lispro 300 Unit/3 Ml Pen SUBQ 1 unit 0800,1200,1700,2100 NALLELY Administration Protocol Lorazepam 0.5 mg 02/07/25 12:38 02/08/25 00:32 Lorazepam 0.5 Mg Tablet PO 0.5 mg TID PRN Administration Anxiety Losartan Potassium 25 mg 02/08/25 09:00 02/08/25 08:26 Losartan 50 Mg Tablet PO 25 mg DAILY NALLELY Administration Melatonin 3 mg 02/05/25 21:48 02/07/25 21:20 Melatonin 3 Mg Tablet PO 3 mg QPM NALLELY Administration Ondansetron HCl 4 mg 02/05/25 20:51 Ondansetron 4 Mg/2 Ml Vial IVP Q6HR PRN Nausea / Vomiting Oxycodone HCl 5 mg 02/07/25 12:38 02/08/25 12:11 Oxycodone 5 Mg Tablet PO 5 mg Q4HR PRN Administration Moderate Pain (Level 4-6) Polyethylene Glycol 17 gm 02/06/25 09:00 02/08/25 08:27 Polyethylene Glycol 3350 17 Gm Packet PO 17 gm DAILY NALLELY Administration Sodium Chloride 10 ml 02/05/25 20:51 02/06/25 04:12 Sodium Chloride Flush 0.9% 10 Ml Syringe IVP 10 ml PRN PRN Administration NEEDED PER PROVIDER ORDERS Sodium Chloride 10 ml 02/06/25 01:00 02/08/25 08:27 Sodium Chloride Flush 0.9% 10 Ml Syringe IVP 10 ml 0100,0900,1700 NALLELY Administration Objective Vital Signs/Intake & Output Reviewed Vital Signs: Yes Vital Signs: Vital Signs x48h Temp Pulse Resp BP Pulse Ox O2 Flow Rate 02/08/25 08:40 37.1 C 99 16 129/66 98 0 Intake & Output: Intake & Output 02/05/25 02/06/25 02/07/25 02/08/25 23:59 23:59 23:59 23:59 Intake Total 2203 / 2203 4995 / 4995 600 / 600 Output Total 150 / 150 1895 / 1895 2250 / 2250 425 / 425 Balance -150 / -150 308 / 308 2745 / 2745 175 / 175 Weight (kg) 65 kg Objective General Appearance: positive No acute distress and Alert Eyes Bilateral: positive Normal inspection ENT: positive ENT inspection nml Neck: positive Nml inspection Respiratory: positive Chest non-tender and Breath sounds nml Cardiovascular: positive Regular rate & rhythm and No murmur Abdomen: positive No distention Back: positive Nml inspection Skin: positive Color nml Extremities: positive Non-tender and Other (right lateral hip dressing changed, incision healing, no active drainage) Neurologic/Psychiatric: positive Oriented x3 Lab Results 02/08/25 04:36 02/08/25 04:36 Other Labs: Lab Results x24hrs 02/08/25 02/08/25 02/08/25 Range/Units 11:43 07:49 04:36 WBC 15.1 H (4.8-10.8) x10^3/uL RBC 3.38 L (4.70-6.10) 10^6/uL Hgb 9.7 L (14.0-18.0) g/dL Hct 29.2 L (42.0-52.0) % MCV 86.4 (80.0-94.0) fL MCH 28.7 (27.0-31.0) pg MCHC 33.2 (32.0-36.0) g/dL RDW 15.4 H (12.0-15.0) % Plt Count 244 (130-450) 10^3/uL MPV 8.9 (7.4-11.4) fL Neut # (Auto) Not Reportable Lymph # (Auto) Not Reportable [place] # (Auto) Not Reportable Eos # (Auto) Not Reportable Baso # (Auto) Not Reportable Absolute Nucleated RBC Not Reportable Total Counted 100 Band Neuts % (Manual) 0 (0 - 10) % Abnorm Lymph % (Manual) 0 % Nucleated RBC % Not Reportable Neutrophils # (Manual) 11.6 H (1.5-6.6) 10^3/uL Lymphocytes # (Manual) 1.5 (1.5-3.5) 10^3/uL Monocytes # (Manual) 1.8 H (0.0-1.0) 10^3/uL Eosinophils # (Manual) 0.2 (0-0.7) 10^3/uL Basophils # (Manual) 0.0 (0-0.1) 10^3/uL Differential Comment MANUAL DIFFERENTIAL WBC Morphology NORMAL APPEARANCE (NORMAL) Platelet Estimate NORMAL (130-450,000) (NORMAL) Platelet Morphology NORMAL APPEARANCE (NORMAL) RBC Morph Micro Appear NORMAL APPEARANCE (NORMAL) Sodium 137 (135-145) mmol/L Potassium 4.2 (3.5-4.5) mmol/L Chloride 105 (101-111) mmol/L Carbon Dioxide 25 (21-32) mmol/L Anion Gap 7.0 (6-13) BUN 15 (6-20) mg/dL Creatinine 1.1 (0.6-1.3) mg/dL Estimated GFR (MDRD) 64 L (>89) Glucose 154 H (74-104) mg/dL POC Whole Bld Glucose 161 180 (70-100) mg/dL Calcium 8.3 L (8.5-10.3) mg/dL 02/07/25 02/07/25 Range/Units 20:48 16:33 WBC (4.8-10.8) x10^3/uL RBC (4.70-6.10) 10^6/uL Hgb (14.0-18.0) g/dL Hct (42.0-52.0) % MCV (80.0-94.0) fL MCH (27.0-31.0) pg MCHC (32.0-36.0) g/dL RDW (12.0-15.0) % Plt Count (130-450) 10^3/uL MPV (7.4-11.4) fL Neut # (Auto) Lymph # (Auto) [place] # (Auto) Eos # (Auto) Baso # (Auto) Absolute Nucleated RBC Total Counted Band Neuts % (Manual) (0 - 10) % Abnorm Lymph % (Manual) % Nucleated RBC % Neutrophils # (Manual) (1.5-6.6) 10^3/uL Lymphocytes # (Manual) (1.5-3.5) 10^3/uL Monocytes # (Manual) (0.0-1.0) 10^3/uL Eosinophils # (Manual) (0-0.7) 10^3/uL Basophils # (Manual) (0-0.1) 10^3/uL Differential Comment WBC Morphology (NORMAL) Platelet Estimate (NORMAL) Platelet Morphology (NORMAL) RBC Morph Micro Appear (NORMAL) Sodium (135-145) mmol/L Potassium (3.5-4.5) mmol/L Chloride (101-111) mmol/L Carbon Dioxide (21-32) mmol/L Anion Gap (6-13) BUN (6-20) mg/dL Creatinine (0.6-1.3) mg/dL Estimated GFR (MDRD) (>89) Glucose (74-104) mg/dL POC Whole Bld Glucose 224 121 (70-100) mg/dL Calcium (8.5-10.3) mg/dL Assessment/Plan Problem List (1) Femoral neck fracture: Impression: ground-level fall resulting in right femoral neck fracture with obvious deformity. POD #1 right hemiarthroplasty. He is out of bed to the chair for lunch today. PT is recommending SNF and patient agrees with that. No post op activity or weight bearing restrictions. He has not needed IV narcotics for over 24 hours. Qualifiers: Encounter type: initial encounter Fracture type: closed Laterality: r ight Qualified Code(s): S72.001A - Fracture of unspecified part of neck of right femur, initial encounter for closed fracture (2) Hyperkalemia: Impression: resolved. unclear etiology. (3) Leukocytosis: Impression: 02/05/25 02/06/2502/07/25 17:54 05:31 05:19 WBC 12.1 H 11.7 H 11.3 H 02/08/25 04:36 WBC 15.1 H He is unable to tell me if he has chronic WBC elevation. He does not have any other signs/symptoms of infection. He does not have cough or fever. his UA is not remarkable. He has a remote hx of indolent prostate cancer, but no other cancer hx. I would recommend that he have CBC repeated in the OP environment if it remains elevated, would recommend flow cytometry. (4) Renal insufficiency: Impression: 02/05/25 02/06/25 17:54 05:31 Creatinine 1.5 H 1.2 Laboratory Tests 02/07/25 05:19 Creatinine 1.0 I have stopped IVF. he is eating and drinking well post operatively. Would recommend close montioring by his PCP (5) Diabetes: Impression: Laboratory Tests 02/07/25 02/07/25 02/08/25 16:33 20:48 07:49 POC Whole Bld Glucose 121 224 180 02/08/25 11:43 POC Whole Bld Glucose 161 A1C 7%- adequate control given his age has needed minimal insulin this admit. Should be able to go back to home DM meds at [place]. Goal will be to keep post op blood sugars less than 180. (6) Hypertension: Impression: Home medications include losartan 25 mg daily lisinopril 5 mg daily. I find it odd that his medications have been reconciled in this patient lists both an STACEY inhibitor and an angiotensin receptor marti. Patient is not aware of his medication list.If he is indeed taking these 2 medications together it could be the cause of his hyperkalemia. Discussed further HD #2. he and his are unsure. . He was a patient of Dr Jones, then at [facility] for a brief time, and now is seeing Dr Mercado in [facility]. All of this in the last year. Blood pressures acceptable. I reconciled his meds myself- he is taking Losartan only. (7) Hyperlipidemia: Impression: Will resume home statin when appropriate. (8) Depression: Impression: Home ativan and buproprion restarted. This patient's diagnosis and treatment plan was discussed this AM with attending physician as a part of multi disciplinary rounding meeting. I have spent 38 minutes in the care of this patient today. This includes time [id number], review and ordering of diagnostic imaging and laboratory studies and consultation with other providers. Monitoring the patient's signs symptoms, evaluation of medication effectiveness and patient's response to treatment.
[2025-02-08] MEDS: CALCIUM CARBONATE CHEW 500 MG TABLET PO SCH (20:28)
[2025-02-09 04:58] LABS: HCT - HEMATOCRIT 28.5 % (42.0-52.0); HGB - HEMOGLOBIN 9.4 g/dL (14.0-18.0); MEAN PLATELET VOLUME 8.8 fL (7.4-11.4); PLT - PLATELET COUNT 235 10^3/uL (130-450); RED CELL DISTRIBUTION WIDTH 15.0 % (12.0-15.0)
[2025-02-09 05:05] LABS: ABNORMAL LYMPHS % (MANUAL) 0 %; BAND NEUTROPHILS % (MANUAL) 0 %; BASOPHILS # (MANUAL) 0.0 10^3/uL (0-0.1)
[2025-02-09 05:15] LABS: BUN - BLOOD UREA NITROGEN 17.0 mg/dL (6-20); CARBON DIOXIDE - CO2 25.0 mmol/L (21-32); CREATININE 1.1 mg/dL (0.6-1.3); GFR - MDRD 64.0 (>89)
[2025-02-09 05:33] LABS: EOSINOPHILS # (MANUAL) 0.2 10^3/uL (0-0.7); LYMPHOCYTES # (MANUAL) 0.7 10^3/uL (1.5-3.5); LYMPHOCYTES % (MANUAL) 4 %; MONOCYTES # (MANUAL) 2.6 10^3/uL (0.0-1.0); NEUTROPHILS # (MANUAL) 13.9 10^3/uL (1.5-6.6); PLATELET ESTIMATE, MANUAL NORMAL (130-450,000) (NORMAL); PLATELET MORPHOLOGY NORMAL APPEARANCE (NORMAL); RBC MORPHOLOGY (MULTIPLE) NORMAL APPEARANCE (NORMAL); WBC MORPHOLOGY (MULTIPLE) NORMAL APPEARANCE (NORMAL)
[2025-02-09] MEDS: CHOLECALCIFEROL 400 UNIT TABLET PO SCH (08:11)
[2025-02-09 14:34] LABS: GLUCOSE, URINE (UA) 100 mg/dL (NEGATIVE); KETONES,URINE (UA) TRACE mg/dL (NEGATIVE); OCCULT BLOOD,URINE TRACE-LYSED (NEGATIVE); SQUAMOUS EPITHELIAL CELL,UR NONE SEEN (<= Few)
[2025-02-09 14:35] LABS: CASTS, URINE 0-2 Granular Casts /LPF
[2025-02-09] MEDS: DOCUSATE SODIUM 250 MG CAPSULE PO SCH (16:16)
--- NOTE | 2025-02-09 16:19 | XRAY Report ---
PROCEDURE: XR Chest 1V INDICATIONS: rising WBC TECHNIQUE: One view of the chest was acquired. COMPARISON: August 05, 2018 FINDINGS: Surgical changes and devices: None. Lungs and pleura: No pleural effusions or pneumothorax. Patchy chronic appearing opacity at the left lung base unchanged when compared to the prior exam. No consolidation. Mediastinum: Mediastinal contours appear normal. Heart size is normal. Bones and chest wall: No suspicious bony lesions. Overlying soft tissues appear unremarkable. IMPRESSION: No acute cardiopulmonary process. Chronic appearing left lung base opacity. Reviewed by: Philip Garcia MD on 02/09/2025 4:15 PM PDT Approved by: Philip Garcia MD on 02/09/2025 4:15 PM PDT Station ID: [id number]
[2025-02-09] MEDS ORDERED: COD LIVER OIL/ZINC OXIDE 113 GM TUBE TOP PRN (18:56)
--- NOTE | 2025-02-09 21:26 | PROVIDER PROGRESS NOTE ---
Subjective Prog Note Date Prog Note Date: 02/09/25 Subjective Subjective: patient is feeling well. he wants to get out of bed more often. he is working to move arounds in bed. Current Medications Current Medications Current Medications: Current Medications Generic Name Dose Route Start Last Admin Trade Name Freq PRN Reason Stop Dose Admin Bupropion HCl 150 mg 02/06/25 09:00 02/09/25 08:12 Bupropion Xl 150 Mg Tablet PO 150 mg DAILY NALLELY Administration Calcium Carbonate/Glycine 500 mg 02/08/25 21:00 02/09/25 20:49 Calcium Carbonate Chew 500 Mg Tablet PO 500 mg BID NALLELY Administration Cholecalciferol 800 unit 02/09/25 09:00 02/09/25 08:11 Cholecalciferol 400 Unit Tablet PO 800 unit DAILY NALLELY Administration Docusate Sodium 250 mg 02/09/25 15:57 02/09/25 16:16 Docusate Sodium 250 Mg Capsule PO 250 mg DAILY NALLELY Administration Enoxaparin Sodium 40 mg 02/08/25 09:00 02/09/25 08:10 Enoxaparin 40 Mg/0.4 Ml Syringe SUBQ 40 mg DAILY NALLELY Administration Insulin Human Lispro 1 - 5 unit 02/07/25 17:00 02/09/25 20:52 Insulin Lispro 300 Unit/3 Ml Pen SUBQ 2 unit 0800,1200,1700,2100 NALLELY Administration Protocol Lorazepam 0.5 mg 02/07/25 12:38 02/09/25 02:52 Lorazepam 0.5 Mg Tablet PO 0.5 mg TID PRN Administration Anxiety Losartan Potassium 25 mg 02/08/25 09:00 02/09/25 08:12 Losartan 50 Mg Tablet PO 25 mg DAILY NALLELY Administration Melatonin 3 mg 02/05/25 21:48 02/09/25 20:49 Melatonin 3 Mg Tablet PO 3 mg QPM NALLELY Administration Ondansetron HCl 4 mg 02/05/25 20:51 Ondansetron 4 Mg/2 Ml Vial IVP Q6HR PRN Nausea / Vomiting Oxycodone HCl 5 mg 02/07/25 12:38 02/09/25 20:49 Oxycodone 5 Mg Tablet PO 5 mg Q4HR PRN Administration Moderate Pain (Level 4-6) Polyethylene Glycol 17 gm 02/06/25 09:00 02/09/25 08:11 Polyethylene Glycol 3350 17 Gm Packet PO 17 gm DAILY NALLELY Administration Polyethylene Glycol 17 gm 02/09/25 21:00 02/09/25 20:49 Polyethylene Glycol 3350 17 Gm Packet PO 17 gm BID NALLELY Administration Sodium Chloride 10 ml 02/05/25 20:51 02/06/25 04:12 Sodium Chloride Flush 0.9% 10 Ml Syringe IVP 10 ml PRN PRN Administration NEEDED PER PROVIDER ORDERS Sodium Chloride 10 ml 02/06/25 01:00 02/09/25 16:17 Sodium Chloride Flush 0.9% 10 Ml Syringe IVP 10 ml 0100,0900,1700 NALLELY Administration Zinc Oxide 113 gm 02/09/25 18:56 Cod Liver Oil/Zinc Oxide 113 Gm Tube TOP PRN PRN Skin Care Objective Vital Signs/Intake & Output Reviewed Vital Signs: Yes Vital Signs: Vital Signs x48h Temp Pulse Resp BP Pulse Ox 02/09/25 15:50 36.7 C 118 H 18 102/75 96 Intake & Output: Intake & Output 02/06/25 02/07/25 02/08/25 02/09/25 23:59 23:59 23:59 23:59 Intake Total 2203 / 2203 4995 / 4995 750 / 750 910 / 910 Output Total 1895 / 1895 2250 / 2250 750 / 750 650 / 650 Balance 308 / 308 2745 / 2745 0 / 0 260 / 260 Objective General Appearance: positive No acute distress and Alert Eyes Bilateral: positive Normal inspection ENT: positive ENT inspection nml Neck: positive Nml inspection Respiratory: positive Chest non-tender and Breath sounds nml Cardiovascular: positive Regular rate & rhythm and No murmur Abdomen: positive No distention Back: positive Nml inspection Skin: positive Color nml Extremities: positive Non-tender and Other (right lateral hip dressing changed, incision healing, no active drainage) Neurologic/Psychiatric: positive Oriented x3 Lab Results 02/09/25 04:47 02/09/25 04:47 Other Labs: Lab Results x24hrs 02/09/25 02/09/25 02/09/25 Range/Units 20:54 16:40 14:05 WBC (4.8-10.8) x10^3/uL RBC (4.70-6.10) 10^6/uL Hgb (14.0-18.0) g/dL Hct (42.0-52.0) % MCV (80.0-94.0) fL MCH (27.0-31.0) pg MCHC (32.0-36.0) g/dL RDW (12.0-15.0) % Plt Count (130-450) 10^3/uL MPV (7.4-11.4) fL Neut # (Auto) Lymph # (Auto) [place] # (Auto) Eos # (Auto) Baso # (Auto) Absolute Nucleated RBC Total Counted Band Neuts % (Manual) (0 - 10) % Abnorm Lymph % (Manual) % Nucleated RBC % Neutrophils # (Manual) (1.5-6.6) 10^3/uL Lymphocytes # (Manual) (1.5-3.5) 10^3/uL Monocytes # (Manual) (0.0-1.0) 10^3/uL Eosinophils # (Manual) (0-0.7) 10^3/uL Basophils # (Manual) (0-0.1) 10^3/uL Differential Comment WBC Morphology (NORMAL) Platelet Estimate (NORMAL) Platelet Morphology (NORMAL) RBC Morph Micro Appear (NORMAL) Sodium (135-145) mmol/L Potassium (3.5-4.5) mmol/L Chloride (101-111) mmol/L Carbon Dioxide (21-32) mmol/L Anion Gap (6-13) BUN (6-20) mg/dL Creatinine (0.6-1.3) mg/dL Estimated GFR (MDRD) (>89) Glucose (74-104) mg/dL POC Whole Bld Glucose 197 200 (70-100) mg/dL Calcium (8.5-10.3) mg/dL Procalcitonin Immunoas (<0.5) ng/mL Urine Color YELLOW Urine Clarity SL. CLOUDY (CLEAR) Urine pH 6.0 (5.0-7.5) PH Ur Specific [place] 1.020 (1.002-1.030) Urine Protein 30 H (NEGATIVE) mg/dL Urine Glucose (UA) 100 H (NEGATIVE) mg/dL Urine Ketones TRACE (NEGATIVE) mg/dL Urine Occult Blood TRACE-LYSED (NEGATIVE) Urine Nitrite NEGATIVE (NEGATIVE) Urine Bilirubin NEGATIVE (NEGATIVE) Urine Urobilinogen 0.2 (NORMAL) (NORMAL) E.U./dL Ur Leukocyte Esterase NEGATIVE (NEGATIVE) Urine RBC None Seen (0-5) /HPF Urine WBC 4-5 (0-3) /HPF Ur Squamous Epith Cells NONE SEEN (<= Few) Urine Bacteria Moderate H (None Seen) /HPF Urine Casts 0-2 Granular Casts /LPF Urine Culture Comments NOT INDICATED 02/09/25 02/09/25 02/09/25 Range/Units 11:58 07:46 04:47 WBC 17.4 H (4.8-10.8) x10^3/uL RBC 3.27 L (4.70-6.10) 10^6/uL Hgb 9.4 L (14.0-18.0) g/dL Hct 28.5 L (42.0-52.0) % MCV 87.2 (80.0-94.0) fL MCH 28.7 (27.0-31.0) pg MCHC 33.0 (32.0-36.0) g/dL RDW 15.0 (12.0-15.0) % Plt Count 235 (130-450) 10^3/uL MPV 8.8 (7.4-11.4) fL Neut # (Auto) Not Reportable Lymph # (Auto) Not Reportable [place] # (Auto) Not Reportable Eos # (Auto) Not Reportable Baso # (Auto) Not Reportable Absolute Nucleated RBC Not Reportable Total Counted 100 Band Neuts % (Manual) 0 (0 - 10) % Abnorm Lymph % (Manual) 0 % Nucleated RBC % Not Reportable Neutrophils # (Manual) 13.9 H (1.5-6.6) 10^3/uL Lymphocytes # (Manual) 0.7 L (1.5-3.5) 10^3/uL Monocytes # (Manual) 2.6 H (0.0-1.0) 10^3/uL Eosinophils # (Manual) 0.2 (0-0.7) 10^3/uL Basophils # (Manual) 0.0 (0-0.1) 10^3/uL Differential Comment MANUAL DIFFERENTIAL WBC Morphology NORMAL APPEARANCE (NORMAL) Platelet Estimate NORMAL (130-450,000) (NORMAL) Platelet Morphology NORMAL APPEARANCE (NORMAL) RBC Morph Micro Appear NORMAL APPEARANCE (NORMAL) Sodium 135 (135-145) mmol/L Potassium 4.6 H (3.5-4.5) mmol/L Chloride 103 (101-111) mmol/L Carbon Dioxide 25 (21-32) mmol/L Anion Gap 7.0 (6-13) BUN 17 (6-20) mg/dL Creatinine 1.1 (0.6-1.3) mg/dL Estimated GFR (MDRD) 64 L (>89) Glucose 154 H (74-104) mg/dL POC Whole Bld Glucose 184 152 (70-100) mg/dL Calcium 8.4 L (8.5-10.3) mg/dL Procalcitonin Immunoas (<0.5) ng/mL Urine Color Urine Clarity (CLEAR) Urine pH (5.0-7.5) PH Ur Specific [place] (1.002-1.030) Urine Protein (NEGATIVE) mg/dL Urine Glucose (UA) (NEGATIVE) mg/dL Urine Ketones (NEGATIVE) mg/dL Urine Occult Blood (NEGATIVE) Urine Nitrite (NEGATIVE) Urine Bilirubin (NEGATIVE) Urine Urobilinogen (NORMAL) E.U./dL Ur Leukocyte Esterase (NEGATIVE) Urine RBC (0-5) /HPF Urine WBC (0-3) /HPF Ur Squamous Epith Cells (<= Few) Urine Bacteria (None Seen) /HPF Urine Casts /LPF Urine Culture Comments 02/09/25 Range/Units 04:41 WBC (4.8-10.8) x10^3/uL RBC (4.70-6.10) 10^6/uL Hgb (14.0-18.0) g/dL Hct (42.0-52.0) % MCV (80.0-94.0) fL MCH (27.0-31.0) pg MCHC (32.0-36.0) g/dL RDW (12.0-15.0) % Plt Count (130-450) 10^3/uL MPV (7.4-11.4) fL Neut # (Auto) Lymph # (Auto) [place] # (Auto) Eos # (Auto) Baso # (Auto) Absolute Nucleated RBC Total Counted Band Neuts % (Manual) (0 - 10) % Abnorm Lymph % (Manual) % Nucleated RBC % Neutrophils # (Manual) (1.5-6.6) 10^3/uL Lymphocytes # (Manual) (1.5-3.5) 10^3/uL Monocytes # (Manual) (0.0-1.0) 10^3/uL Eosinophils # (Manual) (0-0.7) 10^3/uL Basophils # (Manual) (0-0.1) 10^3/uL Differential Comment WBC Morphology (NORMAL) Platelet Estimate (NORMAL) Platelet Morphology (NORMAL) RBC Morph Micro Appear (NORMAL) Sodium (135-145) mmol/L Potassium (3.5-4.5) mmol/L Chloride (101-111) mmol/L Carbon Dioxide (21-32) mmol/L Anion Gap (6-13) BUN (6-20) mg/dL Creatinine (0.6-1.3) mg/dL Estimated GFR (MDRD) (>89) Glucose (74-104) mg/dL POC Whole Bld Glucose (70-100) mg/dL Calcium (8.5-10.3) mg/dL Procalcitonin Immunoas 0.72 H (<0.5) ng/mL Urine Color Urine Clarity (CLEAR) Urine pH (5.0-7.5) PH Ur Specific [place] (1.002-1.030) Urine Protein (NEGATIVE) mg/dL Urine Glucose (UA) (NEGATIVE) mg/dL Urine Ketones (NEGATIVE) mg/dL Urine Occult Blood (NEGATIVE) Urine Nitrite (NEGATIVE) Urine Bilirubin (NEGATIVE) Urine Urobilinogen (NORMAL) E.U./dL Ur Leukocyte Esterase (NEGATIVE) Urine RBC (0-5) /HPF Urine WBC (0-3) /HPF Ur Squamous Epith Cells (<= Few) Urine Bacteria (None Seen) /HPF Urine Casts /LPF Urine Culture Comments Assessment/Plan Problem List (1) Femoral neck fracture: Impression: ground-level fall resulting in right femoral neck fracture with obvious deformity. POD #2 right hemiarthroplasty. PT is recommending SNF and patient agrees with that. No post op activity or weight bearing restrictions. He has not needed IV narcotics for over 24 hours. Qualifiers: Encounter type: initial encounter Fracture type: closed Laterality: r ight Qualified Code(s): S72.001A - Fracture of unspecified part of neck of right femur, initial encounter for closed fracture (2) Hyperkalemia: Impression: resolved. unclear etiology. (3) Leukocytosis: Impression: 02/05/25 02/06/2525 17:54 05:31 05:19 WBC 12.1 H 11.7 H 11.3 H 02/08/25 04:36 WBC 15.1 H 2 02/09/25 04:47 WBC 17.4 H He is unable to tell me if he has chronic WBC elevation. He does not have any other signs/symptoms of infection. He does not have cough or fever. his UA is not remarkable. He has a remote hx of indolent prostate cancer, but no other cancer hx. He is not having any cough, fever or dysuria. Urinalysis today was overall unremarkable. I did send a culture. I stopped scheduled Tylenol so as not to mask any fevers. He is not having any cough. I obtained a chest x-ray. There is a stable left basilar opacity as compared to a chest x-ray in 2019. There are no other findings. I do not have a reasonable cause for his leukocytosis. It seems a bit early for a postop infection. His procalcitonin is mildly elevated at 0.72. I would recommend that he have CBC repeated in the OP environment if it remains elevated, would recommend flow cytometry. Repeat CBC in the AM. (4) Renal insufficiency: Impression: 02/05/25 02/06/25 17:54 05:31 Creatinine 1.5 H 1.2 Laboratory Tests 02/07/25 05:19 Creatinine 1.0 I have stopped IVF. he is eating and drinking well post operatively. Would recommend close montioring by his PCP (5) Diabetes: Impression: A1C 7%- adequate control given his age has needed minimal insulin this admit. Should be able to go back to home DM meds at [place]. Goal is to keep post op blood sugars less than 180. Laboratory Tests 02/09/25 02/09/25 02/09/25 07:46 11:58 16:40 POC Whole Bld Glucose 152 184 200 02/09/25 20:54 POC Whole Bld Glucose 197 He is not meeting this goal, and i have changed his SSI to moderate scale. (6) Hypertension: Impression: Home medications include losartan 25 mg daily lisinopril 5 mg daily. I find it odd that his medications have been reconciled in this patient lists both an STACEY inhibitor and an angiotensin receptor marti. Patient is not aware of his medication list.If he is indeed taking these 2 medications together it could be the cause of his hyperkalemia. Discussed further HD #2. he and his are unsure. . He was a patient of Dr Jones, then at [facility] for a brief time, and now is seeing Dr Mercado in [facility]. All of this in the last year. Blood pressures acceptable. I reconciled his meds myself- he is taking Losartan only. This has been resumed. (7) Hyperlipidemia: Impression: Will resume home statin when appropriate. (8) Depression: Impression: Home ativan and buproprion restarted. This patient's diagnosis and treatment plan was discussed this AM with attending physician as a part of multi disciplinary rounding meeting. I have spent 52 minutes in the care of this patient today. This includes time [id number], review and ordering of diagnostic imaging and laboratory studies and consultation with other providers. Monitoring the patient's signs symptoms, evaluation of medication effectiveness and patient's response to treatment.
[2025-02-10 01:02] VITALS: TEMP 99.3
[2025-02-10 05:25] LABS: HCT - HEMATOCRIT 25.5 % (42.0-52.0); HGB - HEMOGLOBIN 8.6 g/dL (14.0-18.0); MEAN PLATELET VOLUME 9.1 fL (7.4-11.4); PLT - PLATELET COUNT 274 10^3/uL (130-450); RED CELL DISTRIBUTION WIDTH 15.2 % (12.0-15.0)
[2025-02-10 05:37] LABS: ABNORMAL LYMPHS % (MANUAL) 0 %; BASOPHILS # (MANUAL) 0.0 10^3/uL (0-0.1)
[2025-02-10 05:42] LABS: BUN - BLOOD UREA NITROGEN 22.0 mg/dL (6-20); CARBON DIOXIDE - CO2 25.0 mmol/L (21-32); CREATININE 1.1 mg/dL (0.6-1.3); GFR - MDRD 64.0 (>89)
[2025-02-10 06:02] LABS: BAND NEUTROPHILS % (MANUAL) 1 %; EOSINOPHILS # (MANUAL) 0.2 10^3/uL (0-0.7); LYMPHOCYTES # (MANUAL) 0.5 10^3/uL (1.5-3.5); LYMPHOCYTES % (MANUAL) 3 %; MONOCYTES # (MANUAL) 0.9 10^3/uL (0.0-1.0); NEUTROPHILS # (MANUAL) 13.6 10^3/uL (1.5-6.6); PLATELET ESTIMATE, MANUAL NORMAL (130-450,000) (NORMAL); PLATELET MORPHOLOGY NORMAL APPEARANCE (NORMAL); RBC MORPHOLOGY (MULTIPLE) NORMAL APPEARANCE (NORMAL); WBC MORPHOLOGY (MULTIPLE) NORMAL APPEARANCE (NORMAL)
[2025-02-10] MEDS: INSULIN LISPRO 300 UNIT/3 ML PEN SUBQ SCH (09:34)
--- NOTE | 2025-02-10 11:35 | Discharge Summary ---
Discharge Summary Admit Date: 02/05/25 Discharge Date: 02/10/25 Discharging Provider: Fabien Mendez Primary Care Provider: John Mercado Code Status: Do Not Attempt Resuscitation DIAGNOSES Admission Diagnoses: Fracture femoral neck, right Hyperkalemia Leukocytosis Renal insufficiency Diabetes Hypertension Hyperlipidemia Depression with anxiety Discharge Diagnoses with Status of Each Condition: Fracture femoral neck, rightstatus post hemiarthroplasty Hyperkalemiaresolved Leukocytosisongoing, improved. Infectious workup negative Renal insufficiencycreatinine improved to 1.1 Diabeteschronic Hypertensionchronic Hyperlipidemiachronic Depression with anxietychronic HPI History of Present Illness: 84 yo male L[place] after a fall. He bumped into his while walking though a parking lot after having lunch at a restaurant in [place]. has been feeling well recently. no problems. had immediate pain in the right hip with inability to bear weight. unable to get up. Denies syncope/presyncope. Did not hit his head. he is not on blood thinners. Very pleasant in conversation. When I ask about his health history and medications, he wants me to "check the computer". Active and healthy 84 yo. lives with his , no children. DNR status. would make his medical decisions if he were not able. HOSPITAL COURSE Hospital Course: Patient was admitted into the hospital and underwent hemiarthroplasty on 02/07. He was evaluated by physical therapy who recommended SNF placement. On date of discharge, he noted some swelling in his right leg. Homans' sign negative, ultrasound negative. He had a persistent leukocytosis. Infectious workup including chest x-ray and UA was negative. He is being discharged to SNF and has been instructed to follow-up with PCP as well as with orthopedics ALLERGIES Allergies Allergy/AdvReac Type Severity Reaction Status Date / Time ciprofloxacin (From Cipro) AdvReac Unknown Verified 04/23/22 08:58 MEDICATIONS Ambulatory Orders Medication Instructions Recorded Confirmed lisinopril 5 mg tablet 5 mg PO DAILY 03/08/1502/05 lorazepam 0.5 mg tablet 0.5 mg PO Q24HR@2100 PRN Anx iety 03/08/15 02/05/25 bupropion HCl 150 mg 24 hr tablet, 150 mg PO DAILY 02/05/25 extended release losartan 25 mg tablet 25 mg PO DAILY 02/05/2501/20 pioglitazone 15 mg tablet 15 mg PO DAILY 02/05/2501/20 pravastatin 40 mg tablet 40 mg PO QPM 02/05/25 triamcinolone acetonide 0.1 % 1 applic topical BID PRN rash 02/05/25 02/05/25 topical ointment metformin 500 mg tablet 1,000 mg PO BID 02/06/25 aspirin 81 mg tablet 81 mg PO DAILY #30 tabs 01/21 06/16 calcium carbonate 500 mg (2.5 x 200 mg calcium (500 02/10/25 mg)) PO BID 30 days #150 tabs cholecalciferol (vitamin D3) 10 800 unit PO DAILY 30 d ays #60 tabs 02/10/25 mcg (400 unit) tablet oxycodone 5 mg tablet 5 mg PO Q4HR PRN Moderate Pa in 02/10/25 (Level 4-6) #20 tabs PHYSICAL EXAM AT DISCHARGE Physical Exam Other/Comments: General Appearance: positive No acute distress and Alert Eyes Bilateral: positive Normal inspection ENT: positive ENT inspection nml Neck: positive Nml inspection Respiratory: positive Chest non-tender and Breath sounds nml Cardiovascular: positive Regular rate & rhythm and No murmur Abdomen: positive No distention Back: positive Nml inspection Skin: positive Color nml Extremities: positive Non-tender and Other (right lateral hip dressing changed, incision healing, no active drainage). Some swelling in RLE. Negative Homans' sign Neurologic/Psychiatric: positive Oriented x3 LABS 02/10/25 04:51 02/10/25 04:51 FOLLOW UP Follow Up: With PCP, Ortho TIME SPENT Time Spent in Discharge (Minutes): 38 Discharge Plan Discharge Patient Disposition: [facility] DC/Xfer Condition: Stable Prescriptions: New calcium carbonate 200 mg calcium (500 mg) Tablet,Chewable 500 mg PO BID 30 Days Qty: 150 0RF cholecalciferol (vitamin D3) 10 mcg (400 unit) Tablet 800 unit PO DAILY 30 Days Qty: 60 0RF oxycodone 5 mg Tablet 5 mg PO Q4HR PRN (Reason: Moderate Pain (Level 4-6)) Qty: 20 0RF aspirin 81 mg tablet 81 mg PO DAILY Qty: 30 0RF Continued lorazepam 0.5 MG tablet 0.5 mg PO Q24HR@2100 PRN (Reason: Anxiety) lisinopril 5 MG tablet 5 mg PO DAILY bupropion HCl 150 mg tablet extended release 24 hr 150 mg PO DAILY Patient Comments: TAKE ONE TABLET BY MOUTH EVERY MORNING losartan 25 mg tablet 25 mg PO DAILY pioglitazone 15 mg tablet 15 mg PO DAILY Patient Comments: TAKE ONE TABLET BY MOUTH ONE TIME DAILY pravastatin 40 mg tablet 40 mg PO QPM triamcinolone acetonide 0.1 % ointment 1 applic TOPICAL BID PRN (Reason: rash) Patient Comments: Apply to affected areas on the buttocks twice a day for 1-2 weeks metformin 500 mg tablet 1,000 mg PO BID Activity Restrictions: Wt Bearing as Tolerated Diet: Diabetic Health Concerns: He came in to the hospital after a fall. You were found to have a femoral neck fracture on the right. You underwent hemiarthroplasty. Physical therapy evaluated you and recommended that we discharged you to SNF for short time. You are cleared for weightbearing as tolerated. I am starting you on some aspirin just as a prophylaxis against DVT. I am also starting you on calcium and vitamin D supplements to promote healing. I have ordered a short course of oxycodone for pain control. Please follow-up with orthopedics and with your primary care provider Print Language: Maori Patient Instructions: Surg Dc Stand Alone Forms: SNF Discharge, PCP List Vitals documented within 30 minutes of discharge?: Yes
--- NOTE | 2025-02-10 13:11 | Ultrasound Report ---
PROCEDURE: US Venous Duplex RT INDICATIONS: Leg swelling r/o DVT TECHNIQUE: Real-time imaging, as well as color and pulse Doppler interrogation, were performed of the lower extremity deep veins from the inguinal ligament to the popliteal fossa. Attempted visualization of the calf veins was performed. COMPARISON: None. FINDINGS: The deep veins are normally compressible, and free of intraluminal thrombus. Color and pulse Doppler demonstrate normal phasic intraluminal flow. There is normal augmentation response to distal compression maneuver. IMPRESSION: No deep venous thrombosis of the visualized lower extremity. Reviewed by: Abel Granado MD on 02/10/2025 1:08 PM PDT Approved by: Abel Granado MD on 02/10/2025 1:08 PM PDT Station ID: [id number]
[2025-02-10 14:57] VITALS: BP 139/72; O2SAT 98
--- NOTE | 2025-02-23 09:49 | OPERATIVE REPORT ---
Operative Report General Admit Date: 02/05/25 Procedure Data: Operation Date: 02/07/25 09:00 Proposed Procedures p Hip Hemiprosthesis(Right) - Immanuel Schwartz DO Actual Procedures p HIP HEMIARTHROPLASTY(Right) - Immanuel Schwartz DO Pre-Op Diagnosis: DISPLACED RIGHT FEMORAL NECK FRACTURE Anesthesia Type Spinal Case Staff Anesthesia Provider: Aníbal Kauffman Assisting Provider: BRITTNEY GALEANA Rep: YUMIKO NICHOLS, ADRIÁN/BIOMET. Case Times Into Recovery: 02/07/25 10:04 Procedure Start: 02/07/25 09:15 Procedure End: 02/07/25 09:55 Time out: 02/07/25 09:14 Implants HEAD COCR 28MM -6 [id number] TAPERLOC [id number] BIPOLAR ACET CUP [id number] Pre-Op Diagnosis: Displaced right femoral neck fracture Post Op Diagnosis: Displaced right femoral neck fracture Procedure Note Indications: Displaced right femoral neck fracture Complications: None Other Other Information/Narrative: Patient was taken to the operative suite and after undergoing a general anesthetic he was placed in the lateral recumbent position with the right hip exposed. After the right hip was properly prepped and draped we made a 15 cm incision over the greater trochanteric region dissection was taken down to the tensor fascia lyle and this was sized longitudinally once we got in we put the Charnley in place and then we identified the gluteus medius and minimus and we resected the anterior two thirds off from the greater trochanter. We then could see the femoral neck fracture and we measured about 6 7 mm above the femoral lesser tuberosity excuse me lesser trochanter and we made a femoral neck cut at about that 5 to 6 mm memo we then turned our direction back towards the a cetabulum and we put a corkscrew in the femoral head and with the use of the skid we got the head out without any complication we then sized the head and the appropriate size was pulled and we went ahead and turned our direction back towards the stem we then started with the box osteotome then the canal finder then concentric broaching and we broached all the way up until the appropriate size and then we put in the actual stem and we measured our different neck lengths and -6 was found to be the most stable of the neck lengths so we went ahead and opened up the dual articulation bipolar and assembled it on the back table and then inserted the -6 neck length with the appropriate sized dual articulation polyethylene. Once that was done we went ahead and reduced the hip took it through range of motion it was found to be very very stable we then drilled 3 holes through the greater trochanter and we sewed the gluteus and minimus back down to its insertion site with the use of 3 Ethibond sutures. Then we oversewed this with a #1 Vicryl we then closed the tensor fascia lyle with a strata fix and the subcu with a 2-0 Vicryl the skin was closed with jesus a sterile dressing was applied and the patient was awakened and transferred stable to recovery room
== END 2025-02-10 14:01 | DRG 522 ==
LOC: ED 13:59 → MS2 20:51
PROVIDERS: ADMIT Physician Assistant Medical; ATTEND Physician Assistant Medical
PROC: HEMIHIP (2025-02-07 09:00)
DX: S72.001A Fracture of unspecified part of neck of right femur, initial encounter for closed fracture; W01.0XXA Fall on same level from slipping, tripping and stumbling without subsequent striking against object, initial encounter; Y92.481 Parking lot as the place of occurrence of the external cause; Z79.84 Long term (current) use of oral hypoglycemic drugs; N28.9 Disorder of kidney and ureter, unspecified; D72.829 Elevated white blood cell count, unspecified; I10 Essential (primary) hypertension; Z66 Do not resuscitate; E87.5 Hyperkalemia; Z87.891 Personal history of nicotine dependence; E11.9 Type 2 diabetes mellitus without complications; E78.5 Hyperlipidemia, unspecified; F41.8 Other specified anxiety disorders